=== PATIENT | female | born 1990 | race Caucasian/White ===

== ENCOUNTER → 2021-03-03 08:37 | Outpatient (CLI) | payer OTHER, SELFPAY ==
[2021-03-03] MEDS: COVID-19 VACC #1, MRNA(MOD) 100 MCG/0.5 ML VIAL IM (08:46)
== END ==
PROVIDERS: PCP Registered Nurse; Visit Provider Internal Medicine
DX: Z23 Encounter for immunization (principal)
CPT/HCPCS: 0011A; 91301

== ENCOUNTER → 2021-03-14 08:04 | Outpatient (CLI) | payer OTHER, SELFPAY ==
--- NOTE | 2021-03-14 08:06 | DI.US.S_ITS ---
PROCEDURE: US THYROID INDICATIONS: RIGHT THYROID NODULE TECHNIQUE: Real-time scanning was performed of the thyroid gland, with image documentation. COMPARISON: None. FINDINGS: Right: Thyroid lobe measures 6.4 x 2.4 x 2.7 cm. Left: Thyroid lobe measures 5.1 x 1.6 x 2 cm. Isthmus: A mm thick. The thyroid is diffusely heterogeneous, right worse than left. Nodule number: 1 Location: Right mid thyroid Size: 1.8 x 0.9 x 1.3 cm. Composition: Solid Echogenicity: Isoechoic Shape: wider than tall. Margins: Lobulated Echogenic foci: Peripheral calcifications are seen Total points: 7 ACR TI-RADS category: 5 IMPRESSION: Diffusely heterogeneous thyroid, with a suspicious nodule seen within the right mid thyroid. By patient history, this right-sided nodule has been previously biopsied with benign results. If it would be helpful for clinical management decision making, a dedicated repeat ultrasound-guided fine needle aspiration could be considered. ACR TI-RADS definitions and recommendations: TI-RADS 1 (benign): 0 points. FNA not needed. TI-RADS 2 (not suspicious): 2 points. FNA not needed. TI-RADS 3 (mildly suspicious): 3 points. * FNA if 2.5 cm or larger, follow up if 1.5 cm or larger (at 1, 3, and 5 years). TI-RADS 4 (moderately suspicious): 4-6 points. * FNA if 1.5 cm or larger, follow up if 1 cm or larger (at 1, 2, 3, and 5 years). TI-RADS 5 (highly suspicious): 7 points or more. * FNA if 1 cm or larger, follow up if 0.5 cm or larger (every year for 5 years). Dictated by: Phani Dainelle M.D. on 03/14/2021 at 8:04 Approved by: Phani Danielle M.D. on 03/14/2021 at 8:06
== END ==
PROVIDERS: PCP Registered Nurse; Referring Provider Registered Nurse; Visit Provider Registered Nurse
DX: E04.1 Nontoxic single thyroid nodule (principal)
CPT/HCPCS: 76536

== ENCOUNTER → 2021-03-29 07:15 | Outpatient (CLI) | payer OTHER, SELFPAY ==
[2021-03-29 08:17] LABS: Add Manual Diff / Slide Review NO; Basophils Absolute Auto 0 /uL (0-100); Basophils Percent Auto 0.3 % (0-2); Eosinophils Absolute Auto 100 /uL (0-450); Eosinophils Percent Auto 2.1 % (2-4); Hematocrit 41.1 % (36-46); Hemoglobin 13.9 g/dL (12.0-16.0); Lymphocytes Absolute Auto 1900 /uL (1100-4500); Lymphocytes Percent Auto 34.1 % (25-40); Mean Corpuscular HGB Conc 33.9 % (30-36); Mean Corpuscular Hemoglobin 30.8 PG (26-34); Mean Corpuscular Volume 90.9 fL (80-100); Monocytes Absolute Auto 400 /uL (0-900); Neutrophils Absolute Auto 3200 /uL (1500-7000); Neutrophils Percent Auto 56.5 % (50-75); Platelet Count 241 X10^3/uL (150-400); Red Blood Cell Count 4.52 X10^6/uL (4.0-5.2); Red Cell Distribution Width 12.2 % (11.6-14.8); White Blood Cell Count 5.6 X10^3/uL (4.5-11.0)
[2021-03-29 08:35] LABS: Alanine Aminotransferase 17 IU/L (<35); Albumin 4.7 g/dL (3.5-5.0); Albumin Globulin Ratio 1.4 (1.0-2.8); Alkaline Phosphatase 64 U/L (38-126); Aspartate Aminotransferase 26 IU/L (14-36); BUN Creatinine Ratio 14.8 (6-22); Blood Urea Nitrogen 8 mg/dL (7-17); Calcium 9.5 mg/dL (8.4-10.2); Carbon Dioxide 26 mmol/L (22-32); Chloride 103 mmol/L (98-107); Estimated Glomerular Filt Rate > 60.0 mL/min (>60); Globulin 3.4 g/dL (1.7-4.1); Glucose 96 mg/dL (70-100); HEMOLYSIS < 15 (0-50); Sodium 137 mmol/L (137-145); Total Protein 8.1 g/dL (6.3-8.2)
[2021-03-29 08:50] LABS: Free T4, Direct Thyroxine 0.79 ng/dL (0.78-2.19)
[2021-03-29 09:04] LABS: Thyroid Stimulating Hormone 3.39 uIU/mL (0.47-4.68)
== END ==
PROVIDERS: PCP Registered Nurse; Referring Provider Registered Nurse; Visit Provider Registered Nurse
DX: E04.1 Nontoxic single thyroid nodule (principal); Z00.00 Encounter for general adult medical examination without abnormal findings; Z87.42 Personal history of other diseases of the female genital tract
CPT/HCPCS: 36415; 80053; 84439; 84443; 85025

== ENCOUNTER → 2021-03-31 08:25 | Outpatient (CLI) | payer OTHER, SELFPAY ==
[2021-03-31] MEDS: COVID-19 VACC #2, MRNA(MOD) 100 MCG/0.5 ML VIAL IM (08:33)
== END ==
PROVIDERS: PCP Registered Nurse; Visit Provider Internal Medicine
DX: Z23 Encounter for immunization (principal)
CPT/HCPCS: 0012A; 91301

== ENCOUNTER → 2021-08-31 14:43 | Outpatient (ROUT) | payer SELFPAY ==
[2021-08-31 14:45] LABS: Urine Drug Scr, Empl Non-NIDA See Separate Report
== END ==
PROVIDERS: PCP Registered Nurse
DX: Z02.1 Encounter for pre-employment examination (principal)
CPT/HCPCS: 81099

== ENCOUNTER 2021-09-08 07:30 | Outpatient (RCR) | payer OTHER, SELFPAY ==
--- NOTE | 2021-08-11 16:05 | PT.OIE ---
Current Diagnoses Pain in right shoulder (08/11/21) Past Medical History (Last Reviewed 07/24/21 @ 09:39 by MARTIN Hoang) Abnormal Pap smear of cervix (~2009) Foot pain (~2007) Ovarian cyst (~2019) Right shoulder pain Scoliosis (~2005) Shoulder pain (~2013) Thyroid nodule (~2013) [place] teeth removed Past Surgical History (Last Reviewed 07/24/21 @ 09:39 by MARTIN Hoang) [place] teeth removed Visit Care Team Role Provider Type MARTIN Hoang Attending Provider Advanced Fan Installer Primary Care Provider Referring Provider Specialty: Medical Address: [address] [place] [address] Email: [email or web address] Physical Therapy Initial Evaluation PT-OP-A Visit Information Start: 08/07/21 13:53 Freq: Status: Active Protocol: Document 08/11/21 07:30 MB (Rec: 08/11/21 07:52 MB [id number]) Out-Patient Physical Therapy Visit Information Visit Information Visit Type Initial Evaluation Visit Note [place] 12/05 visits Visit Start Time 07:30 Visit Stop Time 08:15 Total Visit Minutes 45 Visit Number 1 Evaluation Information Evaluation Date 08/11/21 PT-OP-B Current Condition Start: 08/07/21 13:53 Freq: Status: Active Protocol: Document 08/11/21 07:30 MB (Rec: 08/11/21 07:52 MB [id number]) Current Condition History of Current Condition Onset Date 2014 Current Complaints Right scapular, neck and right forearm dull ache and pain History of Current Condition Pt has history of SLAP and labral tear right shoulder 2014. She did a lot of PT with last PT course in 2018. She prefers conservative treatment and has occ sharp pain upper arm area, some weakness and paresthesias. Pt has a history of scoliosis, lipoma, and thyroid nodule. Pt used to played a lot of tennis before 2014. In 2013, she started a new job and had to to a lot of heavy lifting. She noticed a lump on the back of her neck that bothered her . She stopped playing tennis in 2018. Recently, she was lifting her 15 month old daughter and she felt the old right right forearm pain. She con't with medial scapular and B neck pain. She had PT for her neck as well. 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 She takes care of her daughter. She is still breast feeding. Lifting over her head and reaching above her head increase the pain. She sleeps on her right side. She sleeps with one pillow under her head . Pressure on the shoulder blade helps. Prior Treatments and Tests Right shoulder MRI 2015 and PT Treatment Goals Patient/Caregiver Goals Come up with therapy program, increase strength and decrease pain PT-OP-C Subjective Start: 08/07/21 13:53 Freq: Status: Active Protocol: Document 08/11/21 07:30 MB (Rec: 08/11/21 07:52 MB [id number]) OP-PT Subjective Patient Comments Patient Comments See history of current condition PT-OP-J Posture/Palpation/Skin Start: 08/07/21 13:53 Freq: Status: Active Protocol: Document 08/11/21 07:30 MB (Rec: 08/11/21 16:05 MB [id number]) Posture Evaluation Comments Posture Comments Decreased thoracic kyphosis, anterior tilt pelvis, rounded shoulders, mild L convexity upper thoracic spine, right convexity lower thoracic spine , right iliac crest slightly higher than the left. PT-OP-K Range of Motion Start: 08/07/21 13:53 Freq: Status: Active Protocol: Document 08/11/21 07:30 MB (Rec: 08/11/21 16:05 MB [id number]) Cervical Spine Range of Motion Cervical Spine Active Testing Position Standing Flexion 45 Extension 40 Rotation Left 57 Rotation Right 70 Lateral Flexion Left 24 Lateral Flexion Right 29 Comments Pt has lipoma like nodule posterior right neck that is about a dime size Shoulder Goniometric Range of Motion Shoulder Left Shoulder ROM WFL Yes Testing Position Standing Flexion 164 Extension 50 Abduction 165 Comments IR behind back in standing to T7 Passive ER/IR in supine with shoulder in 90/90 is normal and equal to the right Mild pain with active shoulder flexion and abduction Right Shoulder ROM WFL Yes Testing Position Standing Flexion 160 Extension 50 Abduction 155 Comments IR behind back in standing to T9 (dominant arm) Passive ER/IR in supine with shoulder in 90/90 is normal and equal to the left PT-OP-M Strength Start: 08/07/21 13:53 Freq: Status: Active Protocol: Document 08/11/21 07:30 MB (Rec: 08/11/21 16:05 MB [id number]) Shoulder Strength Shoulder Manual Muscle Testing Left Flexion 5 Normal Abduction (C5) 5 Normal External Rotation 5 Normal Internal Rotation 5 Normal Right External Rotation 3+ Fair+ Internal Rotation 4 Good Comments Shoulder flexion and abduction MMT NT d/t pt c/o pain with AROM Elbow/Forearm Strength Elbow and Forearm Manual Muscle Testing Left Flexion (C6) 5 Normal Extension (C7) 5 Normal Pronation 5 Normal Supination 5 Normal Right Flexion (C6) 5 Normal Extension (C7) 5 Normal Pronation 5 Normal Supination 5 Normal PT-OP-Q Treatments Start: 08/07/21 13:53 Freq: Status: Active Protocol: Document 08/11/21 07:30 MB (Rec: 08/11/21 16:05 MB [id number]) Therapeutic Exercises Standing Exercises Racquet ball massage Side left Comments Intrascapular STM Self-Care/Home Management Treatment Education Patient Education Body Mechanics,Joint Protection,Pain Management Other Education Educated pt on benefits of proper sleeping position to help support her shoulder and to decrease pain: cervical support with towel in pillow, pillow support between arms and legs, use of frozen vegetables for pain PT-OP-T Assessment and Plan Start: 08/07/21 13:53 Freq: Status: Active Protocol: Document 08/11/21 07:30 MB (Rec: 08/11/21 16:05 MB [id number]) Physical Therapy Assessment Rehab Potential Rehabilitation Potential Good Evaluation Complexity Number of Personal Factors/Comorbidities 1-2 Number of Body Systems Impaired 1-2 Clinical Presentation at Evaluation Evolving Impairments Impairments Activity Tolerance,Functional Activities,Pain,Posture,ROM, Soft Tissue Mobility,Strength Other Impairments Personal factors include history of right shoulder injury and PT and has not continued with exercises from PT though she reports they were helpful. Body systems affected include musculoskeletal and neuromuscular. Her clinical presentation is evolving in setting of old SLAP injury and recurrent pain and weakness. Goals 3 Impairment QuickDASH score reflects 43.18 % impairment Wine Fermenter Goal (LTG) Pt will present with an improved QuickDASH score to reflect no more than 20% impairment to reflect improved function by 10/11/21. LTG Duration 8 weeks 2 Senior Living Goal (LTG) Pt will perform progressive HEP with I including thoracic and cervical flexibility, postural, core, shoulder and intrascapular strengthening and self-massage to decrease pain and improve function by 10/11/21. LTG Duration 8 weeks 1 Wine Fermenter Goal (LTG) Pt will present with increased right shoulder strength to 5/ 5 for flexion, abduction, IR and ER to improve functional use of and pain in right arm by 10/11/21. 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 She presents with normal and painful right shoulder ROM today and weakness. She will benefit from PT for flexibility, strengthening, and manual work . Underlying injury may be a barrier to progression. Physical Therapy Plan Frequency and Duration Frequency of Treatment 2x/Week Duration of Treatment 8 weeks Plan of Care Start Date 08/11/21 Plan of Care End Date 10/11/21 Therapeutic Interventions Therapeutic Interventions Aquatic Therapy,Balance Training,Canalithic Repositioning,Coordination Training,Home Exercise Program ,Joint Mobilizations,Manual Therapy,Neuromuscular Re- education,Patient/Caregiver Education,Self-Care/Home Management,Soft Tissue Mobilization,Taping, Therapeutic Activities, Therapeutic Exercises Modalities Cold Pack/Ice Massage,Electric Stimulation,Hot Packs, Ultrasound Next Visit Focus/Plan Next Note Type Treatment Note Next Visit Plan Next treatment: add infraspinatus MWM and upper traps MWM to racquet ball massge, then ed in back grounds cleaner...pt is already purchasing racquet balls so use those first. Upright arm bike Self SCM MWM, cervical rotation in sitting with end- range head nods, anterior neck stretch. Then, progress thoracic mobility with sitting thoracic rotation stretch and breathing and pect stretch. Progress pool noodle for core engagement and exercises, child's pose for thorax and scoliosis, body blade, manual work
--- NOTE | 2021-08-11 16:05 | PT.OPPOC ---
Physical, Occupational & Speech Therapy At [facility] Current Diagnoses Pain in right shoulder (08/11/21) Visit Care Team Role Provider Type MARTIN Hoang Attending Provider Advanced Painting Machine Operator Primary Care Provider Referring Provider Specialty: Medical Address: [address] [place] [address], [id number] Email: [email or web address] Plan Of Care PT-OP-T Assessment and Plan Start: 08/07/21 13:53 Freq: Status: Active Protocol: Document 08/11/21 07:30 MB (Rec: 08/11/21 16:05 MB [id number]) Physical Therapy Assessment Rehab Potential Rehabilitation Potential Good Evaluation Complexity Number of Personal Factors/Comorbidities 1-2 Number of Body Systems Impaired 1-2 Clinical Presentation at Evaluation Evolving Impairments Impairments Activity Tolerance,Functional Activities,Pain,Posture,ROM, Soft Tissue Mobility,Strength Other Impairments Personal factors include history of right shoulder injury and PT and has not continued with exercises from PT though she reports they were helpful. Body systems affected include musculoskeletal and neuromuscular. Her clinical presentation is evolving in setting of old SLAP injury and recurrent pain and weakness. Goals 3 Impairment QuickDASH score reflects 43.18 % impairment Fast Food Supervisor Goal (LTG) Pt will present with an improved QuickDASH score to reflect no more than 20% impairment to reflect improved function by 10/11/21. LTG Duration 8 weeks 2 Snf Goal (LTG) Pt will perform progressive HEP with I including thoracic and cervical flexibility, postural, core, shoulder and intrascapular strengthening and self-massage to decrease pain and improve function by 10/11/21. LTG Duration 8 weeks 1 Snf Goal (LTG) Pt will present with increased right shoulder strength to 5/ 5 for flexion, abduction, IR and ER to improve functional use of and pain in right arm by 10/11/21. 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 She presents with normal and painful right shoulder ROM today and weakness. She will benefit from PT for flexibility, strengthening, and manual work . Underlying injury may be a barrier to progression. Physical Therapy Plan Frequency and Duration Frequency of Treatment 2x/Week Duration of Treatment 8 weeks Plan of Care Start Date 08/11/21 Plan of Care End Date 10/11/21 Therapeutic Interventions Therapeutic Interventions Aquatic Therapy,Balance Training,Canalithic Repositioning,Coordination Training,Home Exercise Program ,Joint Mobilizations,Manual Therapy,Neuromuscular Re- education,Patient/Caregiver Education,Self-Care/Home Management,Soft Tissue Mobilization,Taping, Therapeutic Activities, Therapeutic Exercises Modalities Cold Pack/Ice Massage,Electric Stimulation,Hot Packs, Ultrasound Next Visit Focus/Plan Next Note Type Treatment Note Next Visit Plan Next treatment: add infraspinatus MWM and upper traps MWM to racquet ball massge, then ed in back staff physical therapy assistant...pt is already purchasing racquet balls so use those first. Upright arm bike Self SCM MWM, cervical rotation in sitting with end- range head nods, anterior neck stretch. Then, progress thoracic mobility with sitting thoracic rotation stretch and breathing and pect stretch. Progress pool noodle for core engagement and exercises, child's pose for thorax and scoliosis, body blade, manual work Plan of Care Dates Plan of Care Start Date 08/11/21 Plan of Care End Date 10/11/21 Electronically Signed by: Holly Najera PT 08/11/21 0127 Please Sign and Return: I have reviewed this Plan of Care and certify that the skilled therapy services above are required to meet the patient?s needs. Physician Signature Date Printed Name and Credentials Clinical Instructor Signature Printed Name and Credentials
--- NOTE | 2021-08-17 08:17 | PT.OTN ---
Current Diagnoses Pain in right shoulder (08/17/21) Physical Therapy Treatment Note PT-OP-A Visit Information Start: 08/07/21 13:53 Freq: Status: Active Protocol: Document 08/17/21 07:30 SP (Rec: 08/17/21 08:20 SP [id number]) Out-Patient Physical Therapy Visit Information Visit Information Visit Type Treatment Note Visit Note [place] 01/05 visits Visit Start Time 07:30 Visit Stop Time 08:17 Total Visit Minutes 47 Visit Number 2 Number of APPRAISER ART Visits 1 Evaluation Information Evaluation Date 08/11/21 PT-OP-B Current Condition Start: 08/07/21 13:53 Freq: Status: Active Protocol: Document 08/11/21 07:30 MB (Rec: 08/11/21 07:52 MB [id number]) Current Condition History of Current Condition Onset Date 2014 Current Complaints Right scapular, neck and right forearm dull ache and pain History of Current Condition Pt has history of SLAP and labral tear right shoulder 2014. She did a lot of PT with last PT course in 2017. She prefers conservative treatment and has occ sharp pain upper arm area, some weakness and paresthesias. Pt has a history of scoliosis, lipoma, and thyroid nodule. Pt used to played a lot of tennis before 2014. In 2013, she started a new job and had to to a lot of heavy lifting. She noticed a lump on the back of her neck that bothered her . She stopped playing tennis in 2018. Recently, she was lifting her 15 month old daughter and she felt the old right right forearm pain. She con't with medial scapular and B neck pain. She had PT for her neck as well. 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 She takes care of her daughter. She is still breast feeding. Lifting over her head and reaching above her head increase the pain. She sleeps on her right side. She sleeps with one pillow under her head . Pressure on the shoulder blade helps. Prior Treatments and Tests Right shoulder MRI 2014 and PT Treatment Goals Patient/Caregiver Goals Come up with therapy program, increase strength and decrease pain PT-OP-C Subjective Start: 08/07/21 13:53 Freq: Status: Active Protocol: Document 08/17/21 07:30 SP (Rec: 08/17/21 08:20 SP [id number]) OP-PT Subjective Patient Comments Patient Comments Pt reports wasn't able to get racquetball for self massage but using a slight larger ball . Finds tightness over anterior neck and still difficult turning head to L to look over shld driving. PT-OP-J Posture/Palpation/Skin Start: 08/07/21 13:53 Freq: Status: Active Protocol: Document 08/11/21 07:30 MB (Rec: 08/11/21 16:05 MB [id number]) Posture Evaluation Comments Posture Comments Decreased thoracic kyphosis, anterior tilt pelvis, rounded shoulders, mild L convexity upper thoracic spine, right convexity lower thoracic spine , right iliac crest slightly higher than the left. PT-OP-K Range of Motion Start: 08/07/21 13:53 Freq: Status: Active Protocol: Document 08/11/21 07:30 MB (Rec: 08/11/21 16:05 MB [id number]) Cervical Spine Range of Motion Cervical Spine Active Testing Position Standing Flexion 45 Extension 40 Rotation Left 57 Rotation Right 70 Lateral Flexion Left 24 Lateral Flexion Right 29 Comments Pt has lipoma like nodule posterior right neck that is about a dime size Shoulder Goniometric Range of Motion Shoulder Left Shoulder ROM WFL Yes Testing Position Standing Flexion 164 Extension 50 Abduction 165 Comments IR behind back in standing to T7 Passive ER/IR in supine with shoulder in 90/90 is normal and equal to the right Mild pain with active shoulder flexion and abduction Right Shoulder ROM WFL Yes Testing Position Standing Flexion 160 Extension 50 Abduction 155 Comments IR behind back in standing to T9 (dominant arm) Passive ER/IR in supine with shoulder in 90/90 is normal and equal to the left PT-OP-M Strength Start: 08/07/21 13:53 Freq: Status: Active Protocol: Document 08/11/21 07:30 MB (Rec: 08/11/21 16:05 MB [id number]) Shoulder Strength Shoulder Manual Muscle Testing Left Flexion 5 Normal Abduction (C5) 5 Normal External Rotation 5 Normal Internal Rotation 5 Normal Right External Rotation 3+ Fair+ Internal Rotation 4 Good Comments Shoulder flexion and abduction MMT NT d/t pt c/o pain with AROM Elbow/Forearm Strength Elbow and Forearm Manual Muscle Testing Left Flexion (C6) 5 Normal Extension (C7) 5 Normal Pronation 5 Normal Supination 5 Normal Right Flexion (C6) 5 Normal Extension (C7) 5 Normal Pronation 5 Normal Supination 5 Normal PT-OP-Q Treatments Start: 08/07/21 13:53 Freq: Status: Active Protocol: Document 08/17/21 07:30 SP (Rec: 08/17/21 08:20 SP [id number]) Therapeutic Exercises Supine Exercises CS ext hold Supine Exercise Name chin nod stretch Reps/Minutes 10 s hold x10 CS ext/ rotation w/ head nod/ turn Side bilateral Reps/Minutes 10 sx10 Sitting Exercises scap retraction Sitting Exercise Name w/ CS ext neutral Reps/Minutes 10 s hold x10 Standing Exercises thercane Standing Exercise Name suboccipital w/ head nod/turn Side right Comments good feedback response Racquet ball massage Side bilateral Comments Intrascapular, pec STM Manual Therapy Treatment Soft Tissue Mobilization STMs Body Location R>LSCM, suboccipitals, lev scap, UT, pec major, prox bicep Mobilization Type Myofascial Release,Strumming, Sustained Pressure Intensity/Depth Moderate Body Position Supine Comments manual and MWM w/ head nods posterior- instruction on self STMs ball wall/ theracane, sustained pressure PT-OP-T Assessment and Plan Start: 08/07/21 13:53 Freq: Status: Active Protocol: Document 08/17/21 07:30 SP (Rec: 08/17/21 08:20 SP [id number]) Physical Therapy Assessment Goals 3 Impairment QuickDASH score reflects 43.18 % impairment Defense Attorney Goal (LTG) Pt will present with an improved QuickDASH score to reflect no more than 20% impairment to reflect improved function by 10/11/21. LTG Duration 8 weeks 2 Fdc Goal (LTG) Pt will perform progressive HEP with I including thoracic and cervical flexibility, postural, core, shoulder and intrascapular strengthening and self-massage to decrease pain and improve function by 10/11/21. LTG Duration 8 weeks 1 Fdc Goal (LTG) Pt will present with increased right shoulder strength to 5/ 5 for flexion, abduction, IR and ER to improve functional use of and pain in right arm by 10/11/21. LTG Duration 8 weeks Assessment Summary Assessment Pt responded well to manual and instruction on self STMs using ball on wall over interscap, added pec with ball vs hand MWM UE movements and MWM using SCM then theracane over posterior neck musculature for self performance at home ( has a thereacane). Intiated DNF, cervical rotation with head nod/ turn and awaress of scap stab posture supine and stand back to wall this tx. Pt stated ableto turn head to L little more end of tx. Physical Therapy Plan Frequency and Duration Frequency of Treatment 2x/Week Duration of Treatment 8 weeks Plan of Care Start Date 08/11/21 Plan of Care End Date 10/11/21 Therapeutic Interventions Therapeutic Interventions Aquatic Therapy,Balance Training,Canalithic Repositioning,Coordination Training,Home Exercise Program ,Joint Mobilizations,Manual Therapy,Neuromuscular Re- education,Patient/Caregiver Education,Self-Care/Home Management,Soft Tissue Mobilization,Taping, Therapeutic Activities, Therapeutic Exercises Modalities Cold Pack/Ice Massage,Electric Stimulation,Hot Packs, Ultrasound Next Visit Focus/Plan Next Note Type Treatment Note Next Visit Plan Next treatment: review infraspinatus MWM and upper traps MWM to racquet ball massge, then ed in back director of medical education...pt is already purchasing racquet balls so use those first. Assess use of theracane, Upright arm bike, pec stretch over noodle/ foam roller , add UE ROM if tolerant. Self SCM MWM, cervical rotation in sitting with end- range head nods, anterior neck stretch. Then, progress thoracic mobility with sitting thoracic rotation stretch and breathing and pect stretch. Progress pool noodle for core engagement and exercises, child's pose for thorax and scoliosis, body blade, manual work
--- NOTE | 2021-08-21 08:30 | PT.OTN ---
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 She did a lot of PT with last PT course in 2017. She prefers conservative treatment and has occ sharp pain upper arm area, some weakness and paresthesias. Pt has a history of scoliosis, lipoma, and thyroid nodule. Pt used to played a lot of tennis before 2014. In 2013, she started a new job and had to to a lot of heavy lifting. She noticed a lump on the back of her neck that bothered her . She stopped playing tennis in 2018. Recently, she was lifting her 15 month old daughter and she felt the old right right forearm pain. She con't with medial scapular and B neck pain. She had PT for her neck as well. 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 She takes care of her daughter. She is still breast feeding. Lifting over her head and reaching above her head increase the pain. She sleeps on her right side. She sleeps with one pillow under her head . Pressure on the shoulder blade helps. Prior Treatments and Tests Right shoulder MRI 2014 and PT Treatment Goals Patient/Caregiver Goals Come up with therapy program, increase strength and decrease pain PT-OP-C Subjective Start: 08/07/21 13:53 Freq: Status: Active Protocol: Document 08/21/21 07:30 SP (Rec: 08/21/21 08:51 SP [id number]) OP-PT Subjective Patient Comments Patient Comments Pt states is compliant with HEP and manual techniques learned past 2 treatments, unsure if feeling loosening up yet. PT-OP-J Posture/Palpation/Skin Start: 08/07/21 13:53 Freq: Status: Active Protocol: Document 08/11/21 07:30 MB (Rec: 08/11/21 16:05 MB [id number]) Posture Evaluation Comments Posture Comments Decreased thoracic kyphosis, anterior tilt pelvis, rounded shoulders, mild L convexity upper thoracic spine, right convexity lower thoracic spine , right iliac crest slightly higher than the left. PT-OP-K Range of Motion Start: 08/07/21 13:53 Freq: Status: Active Protocol: Document 08/11/21 07:30 MB (Rec: 08/11/21 16:05 MB [id number]) Cervical Spine Range of Motion Cervical Spine Active Testing Position Standing Flexion 45 Extension 40 Rotation Left 57 Rotation Right 70 Lateral Flexion Left 24 Lateral Flexion Right 29 Comments Pt has lipoma like nodule posterior right neck that is about a dime size Shoulder Goniometric Range of Motion Shoulder Left Shoulder ROM WFL Yes Testing Position Standing Flexion 164 Extension 50 Abduction 165 Comments IR behind back in standing to T7 Passive ER/IR in supine with shoulder in 90/90 is normal and equal to the right Mild pain with active shoulder flexion and abduction Right Shoulder ROM WFL Yes Testing Position Standing Flexion 160 Extension 50 Abduction 155 Comments IR behind back in standing to T9 (dominant arm) Passive ER/IR in supine with shoulder in 90/90 is normal and equal to the left PT-OP-M Strength Start: 08/07/21 13:53 Freq: Status: Active Protocol: Document 08/11/21 07:30 MB (Rec: 08/11/21 16:05 MB [id number]) Shoulder Strength Shoulder Manual Muscle Testing Left Flexion 5 Normal Abduction (C5) 5 Normal External Rotation 5 Normal Internal Rotation 5 Normal Right External Rotation 3+ Fair+ Internal Rotation 4 Good Comments Shoulder flexion and abduction MMT NT d/t pt c/o pain with AROM Elbow/Forearm Strength Elbow and Forearm Manual Muscle Testing Left Flexion (C6) 5 Normal Extension (C7) 5 Normal Pronation 5 Normal Supination 5 Normal Right Flexion (C6) 5 Normal Extension (C7) 5 Normal Pronation 5 Normal Supination 5 Normal PT-OP-Q Treatments Start: 08/07/21 13:53 Freq: Status: Active Protocol: Document 08/21/21 07:30 SP (Rec: 08/21/21 08:51 SP [id number]) Therapeutic Exercises Supine Exercises TS ext and rolling Supine Exercise Name reviewed past TS mob Equipment Used has small roller at home Reps/Minutes 1 min Comments ext up spinal seg then roll pec stretch over foam roller Supine Exercise Name 3, 2, 1, 12 o'clock (added to HEP) Resistance over foam noodle>foam roller Reps/Minutes 10s each position Comments will use roller blanket at home for now (has small roller ) CS ext hold Supine Exercise Name chin nod stretch Resistance reviewed HEP Reps/Minutes 10s hold x10 Comments good form CS ext/ rotation w/ head nod/ turn Supine Exercise Name chin nod stretch (supine and sitting) Side bilateral Resistance reviewed HEP Reps/Minutes 10 sx10 Comments cued neck straight alignment w / rotation then nod Sidelying Exercises open book Sidelying Exercise Name hand on head w/ breath end feel Side bilateral Resistance added to HEP Reps/Minutes 3 sec hold x5 Comments good feedback stretch, more open Sitting Exercises UT and levator scap stretch Sitting Exercise Name reviewed self stretching has been doing (HEP) Side right Reps/Minutes 30 x3 Comments good feedback stretch SNAGS Sitting Exercise Name CS rotation w/ towel Side bilateral Resistance added to HEP Reps/Minutes 10 x 5 Comments cued towel over cheek, neck plum straight and just rotate, no UT recruitment seated CS rotation w/ head nods Sitting Exercise Name reviewed seated today Side bilateral Resistance added to HEP Reps/Minutes 5 nods x5 Comments cued plum neck alignment before turn and maintain- better stretch on R. scap retraction Sitting Exercise Name w/ CS ext neutral Resistance reviewed HEP Reps/Minutes 10 s hold x10 Standing Exercises shoulder ER w/ resistance Standing Exercise Name added to HEP Side bilateral Resistance TB #1 Equipment Used back to wall, over foam roller Reps/Minutes x10 Comments cued tall alignment, TA awareness con/ ecc directioning thercane Standing Exercise Name suboccipital w/ head nod/turn Side right Reps/Minutes discussed doing at home- not performed in tx Comments good feedback response Racquet ball massage Standing Exercise Name infraspinatus Side bilateral Comments Intrascapular, pec STM Manual Therapy Treatment Soft Tissue Mobilization scapular STMs Body Location infraspinatus, supraspinatus, teres Mobilization Type Cross-Friction Intensity/Depth Moderate Body Position Sidelying Comments manual STMs Body Location suboccipitals, lev scap, UT, pec major, prox bicep Mobilization Type Myofascial Release,Strumming, Sustained Pressure Intensity/Depth Moderate Body Position Supine Comments manual and MWM w/ head nods posterior- instruction on self STMs ball wall/ theracane, sustained pressure Manual Techniques PNF R scap Body Location R scap Body Position Sidelying Comments inferior/posterior w/ education on neutral positioning during scap retraction/ shld ER to decrease UT/post cervical mus recruitment. PT-OP-T Assessment and Plan Start: 08/07/21 13:53 Freq: Status: Active Protocol: Document 08/21/21 07:30 SP (Rec: 08/21/21 08:51 SP [id number]) Physical Therapy Assessment Goals 3 Impairment QuickDASH score reflects 43.18 % impairment News Camera Operator Goal (LTG) Pt will present with an improved QuickDASH score to reflect no more than 20% impairment to reflect improved function by 10/11/21. LTG Duration 8 weeks 2 News Camera Operator Goal (LTG) Pt will perform progressive HEP with I including thoracic and cervical flexibility, postural, core, shoulder and intrascapular strengthening and self-massage to decrease pain and improve function by 10/11/21. LTG Duration 8 weeks 1 Fpc Goal (LTG) Pt will present with increased right shoulder strength to 5/ 5 for flexion, abduction, IR and ER to improve functional use of and pain in right arm by 10/11/21. LTG Duration 8 weeks Assessment Summary Assessment Pt responded well to manual and understanding how use theracane and racquetball at wall. Initiated cervical SNAGS , UT/ Lev Scap stretching/ rotation w/ head nods and TS & scapular mobility this tx. Ended with shld ER strengthening with occasional cues with wall and foam roller for self feedback for TA engagement and scap post/ retract for stability. Pt stated feels weak in shld ER and today very beneficial of balancing reduce tightness and start strengthening. Discussed holding child alternating sides to reduce R hip hike and UT recruitment and incorporating HEP to balance self. Physical Therapy Plan Frequency and Duration Frequency of Treatment 2x/Week Duration of Treatment 8 weeks Plan of Care Start Date 08/11/21 Plan of Care End Date 10/11/21 Therapeutic Interventions Therapeutic Interventions Aquatic Therapy,Balance Training,Canalithic Repositioning,Coordination Training,Home Exercise Program ,Joint Mobilizations,Manual Therapy,Neuromuscular Re- education,Patient/Caregiver Education,Self-Care/Home Management,Soft Tissue Mobilization,Taping, Therapeutic Activities, Therapeutic Exercises Modalities Cold Pack/Ice Massage,Electric Stimulation,Hot Packs, Ultrasound Next Visit Focus/Plan Next Note Type Treatment Note Next Visit Plan Next treatment: STMs R infraspinatus and UT review use of racquet ball massge, then ed in back double end tenon operator. Add Upright arm bike, review pec stretch and shld ER TB over noodle/foam roller, add UE OH w if tolerant w/ resistance. Continue progress thoracic mobility with sitting thoracic rotation stretch and breathing and pect stretch. Progress pool noodle for core engagement and exercises, child's pose for thorax and scoliosis, body blade, manual work
--- NOTE | 2021-08-23 11:38 | PT.OTN ---
Current Diagnoses Pain in right shoulder (08/23/21) Physical Therapy Treatment Note PT-OP-A Visit Information Start: 08/07/21 13:53 Freq: Status: Active Protocol: Document 08/23/21 07:26 [facility] (Rec: 08/23/21 11:36 [facility] [id number]) Out-Patient Physical Therapy Visit Information Visit Information Visit Type Treatment Note Visit Note Valentine 03/05 visits Visit Start Time 07:30 Visit Stop Time 08:15 Total Visit Minutes 45 Visit Number 4 Number of BRUSHER WARP Visits 0 PT-OP-B Current Condition Start: 08/07/21 13:53 Freq: Status: Active Protocol: Document 08/11/21 07:30 MB (Rec: 08/11/21 07:52 MB [id number]) Current Condition History of Current Condition Onset Date 2014 Current Complaints Right scapular, neck and right forearm dull ache and pain History of Current Condition Pt has history of SLAP and labral tear right shoulder 2014. She did a lot of PT with last PT course in 2017. She prefers conservative treatment and has occ sharp pain upper arm area, some weakness and paresthesias. Pt has a history of scoliosis, lipoma, and thyroid nodule. Pt used to played a lot of tennis before 2014. In 2013, she started a new job and had to to a lot of heavy lifting. She noticed a lump on the back of her neck that bothered her . She stopped playing tennis in 2018. Recently, she was lifting her 15 month old daughter and she felt the old right right forearm pain. She con't with medial scapular and B neck pain. She had PT for her neck as well. 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 She takes care of her daughter. She is still breast feeding. Lifting over her head and reaching above her head increase the pain. She sleeps on her right side. She sleeps with one pillow under her head . Pressure on the shoulder blade helps. Prior Treatments and Tests Right shoulder MRI 2014 and PT Treatment Goals Patient/Caregiver Goals Come up with therapy program, increase strength and decrease pain PT-OP-C Subjective Start: 08/07/21 13:53 Freq: Status: Active Protocol: Document 08/23/21 07:26 [facility] (Rec: 08/23/21 11:36 [facility] [id number]) OP-PT Subjective Patient Comments Patient Comments Pt reports continued compliance w/HEP and feeling sore, borderline painful, in neck from HEP. Pt reports using heavy self-massage pressure. PT-OP-J Posture/Palpation/Skin Start: 08/07/21 13:53 Freq: Status: Active Protocol: Document 08/11/21 07:30 MB (Rec: 08/11/21 16:05 MB [id number]) Posture Evaluation Comments Posture Comments Decreased thoracic kyphosis, anterior tilt pelvis, rounded shoulders, mild L convexity upper thoracic spine, right convexity lower thoracic spine , right iliac crest slightly higher than the left. PT-OP-K Range of Motion Start: 08/07/21 13:53 Freq: Status: Active Protocol: Document 08/11/21 07:30 MB (Rec: 08/11/21 16:05 MB [id number]) Cervical Spine Range of Motion Cervical Spine Active Testing Position Standing Flexion 45 Extension 40 Rotation Left 57 Rotation Right 70 Lateral Flexion Left 24 Lateral Flexion Right 29 Comments Pt has lipoma like nodule posterior right neck that is about a dime size Shoulder Goniometric Range of Motion Shoulder Left Shoulder ROM WFL Yes Testing Position Standing Flexion 164 Extension 50 Abduction 165 Comments IR behind back in standing to T7 Passive ER/IR in supine with shoulder in 90/90 is normal and equal to the right Mild pain with active shoulder flexion and abduction Right Shoulder ROM WFL Yes Testing Position Standing Flexion 160 Extension 50 Abduction 155 Comments IR behind back in standing to T9 (dominant arm) Passive ER/IR in supine with shoulder in 90/90 is normal and equal to the left PT-OP-M Strength Start: 08/07/21 13:53 Freq: Status: Active Protocol: Document 08/11/21 07:30 MB (Rec: 08/11/21 16:05 MB [id number]) Shoulder Strength Shoulder Manual Muscle Testing Left Flexion 5 Normal Abduction (C5) 5 Normal External Rotation 5 Normal Internal Rotation 5 Normal Right External Rotation 3+ Fair+ Internal Rotation 4 Good Comments Shoulder flexion and abduction MMT NT d/t pt c/o pain with AROM Elbow/Forearm Strength Elbow and Forearm Manual Muscle Testing Left Flexion (C6) 5 Normal Extension (C7) 5 Normal Pronation 5 Normal Supination 5 Normal Right Flexion (C6) 5 Normal Extension (C7) 5 Normal Pronation 5 Normal Supination 5 Normal PT-OP-Q Treatments Start: 08/07/21 13:53 Freq: Status: Active Protocol: Document 08/23/21 07:26 [facility] (Rec: 08/23/21 11:36 [facility] [id number]) Therapeutic Exercises Supine Exercises TS ext and rolling Supine Exercise Name work on tspine ext w/cues to avoid lumbar and excessive cerivcal ext Comments encouraged to do chin tuck & pelvic tilt & use LTR to help mob pec stretch over foam roller Supine Exercise Name 12 o'clock to 3/9 o'clock Side bilateral Resistance bodyweight Equipment Used 36 inch foam roller Reps/Minutes slow continuous movement Comments movement to midline and crossbody Standing Exercises shoulder ER w/ resistance Side bilateral Resistance TB #1 Equipment Used back to wall Reps/Minutes 1x20 Comments needed mod cueing for spine aligned w/wall Manual Therapy Treatment Soft Tissue Mobilization lats Body Location R w/fwd reach Mobilization Type Strumming,Sustained Pressure Intensity/Depth Moderate Body Position Sidelying Joint Mobilizations thoracic Comments 1. UPA R T6 &7 w/c/r ant elevation/post dep ribs Comments caudal glides of ribs 7, 2 & 3 R w/c/r ant elevation/ post dep Neuro Re-Education Treatment Other Activities PNF Comments R scap post dep sustained hold PT-OP-T Assessment and Plan Start: 08/07/21 13:53 Freq: Status: Active Protocol: Document 08/23/21 07:26 [facility] (Rec: 08/23/21 11:36 [facility] [id number]) Physical Therapy Assessment Goals 3 Impairment QuickDASH score reflects 43.18 % impairment Manifest/Order Organizer Print Orders Goal (LTG) Pt will present with an improved QuickDASH score to reflect no more than 20% impairment to reflect improved function by 10/11/21. LTG Duration 8 weeks 2 Manifest/Order Organizer Print Orders Goal (LTG) Pt will perform progressive HEP with I including thoracic and cervical flexibility, postural, core, shoulder and intrascapular strengthening and self-massage to decrease pain and improve function by 10/11/21. LTG Duration 8 weeks 1 Manifest/Order Organizer Print Orders Goal (LTG) Pt will present with increased right shoulder strength to 5/ 5 for flexion, abduction, IR and ER to improve functional use of and pain in right arm by 10/11/21. LTG Duration 8 weeks Assessment Summary Assessment Pt reports relief w/treatment w/dec neck pain and dec scap numbness feeling. She did well with exercises w/questions answered but ddid require cues to avoid back ext during exercises. Physical Therapy Plan Frequency and Duration Frequency of Treatment 2x/Week Duration of Treatment 8 weeks Plan of Care Start Date 08/11/21 Plan of Care End Date 10/11/21 Next Visit Focus/Plan Next Note Type Treatment Note Next Visit Plan start work on core control & work on posture, work on scap depression ability.
--- NOTE | 2021-08-30 10:54 | PT.OTN ---
Current Diagnoses Pain in right shoulder (08/30/21) Physical Therapy Treatment Note PT-OP-A Visit Information Start: 08/07/21 13:53 Freq: Status: Active Protocol: Document 08/23/21 07:26 [facility] (Rec: 08/23/21 11:36 [facility] [id number]) Out-Patient Physical Therapy Visit Information Visit Information Visit Type Treatment Note Visit Note [place] 03/05 visits Visit Start Time 07:30 Visit Stop Time 08:15 Total Visit Minutes 45 Visit Number 4 Number of PRICE ACCURACY SUPERVISOR Visits 0 PT-OP-B Current Condition Start: 08/07/21 13:53 Freq: Status: Active Protocol: Document 08/11/21 07:30 MB (Rec: 08/11/21 07:52 MB [id number]) Current Condition History of Current Condition Onset Date 2014 Current Complaints Right scapular, neck and right forearm dull ache and pain History of Current Condition Pt has history of SLAP and labral tear right shoulder 2014. She did a lot of PT with last PT course in 2017. She prefers conservative treatment and has occ sharp pain upper arm area, some weakness and paresthesias. Pt has a history of scoliosis, lipoma, and thyroid nodule. Pt used to played a lot of tennis before 2014. In 2013, she started a new job and had to to a lot of heavy lifting. She noticed a lump on the back of her neck that bothered her . She stopped playing tennis in 2018. Recently, she was lifting her 15 month old daughter and she felt the old right right forearm pain. She con't with medial scapular and B neck pain. She had PT for her neck as well. 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 She takes care of her daughter. She is still breast feeding. Lifting over her head and reaching above her head increase the pain. She sleeps on her right side. She sleeps with one pillow under her head . Pressure on the shoulder blade helps. Prior Treatments and Tests Right shoulder MRI 2014 and PT Treatment Goals Patient/Caregiver Goals Come up with therapy program, increase strength and decrease pain PT-OP-C Subjective Start: 08/07/21 13:53 Freq: Status: Active Protocol: Document 08/23/21 07:26 [facility] (Rec: 08/23/21 11:36 [facility] [id number]) OP-PT Subjective Patient Comments Patient Comments Pt reports continued compliance w/HEP and feeling sore, borderline painful, in neck from HEP. Pt reports using heavy self-massage pressure. PT-OP-J Posture/Palpation/Skin Start: 08/07/21 13:53 Freq: Status: Active Protocol: Document 08/11/21 07:30 MB (Rec: 08/11/21 16:05 MB [id number]) Posture Evaluation Comments Posture Comments Decreased thoracic kyphosis, anterior tilt pelvis, rounded shoulders, mild L convexity upper thoracic spine, right convexity lower thoracic spine , right iliac crest slightly higher than the left. PT-OP-K Range of Motion Start: 08/07/21 13:53 Freq: Status: Active Protocol: Document 08/11/21 07:30 MB (Rec: 08/11/21 16:05 MB [id number]) Cervical Spine Range of Motion Cervical Spine Active Testing Position Standing Flexion 45 Extension 40 Rotation Left 57 Rotation Right 70 Lateral Flexion Left 24 Lateral Flexion Right 29 Comments Pt has lipoma like nodule posterior right neck that is about a dime size Shoulder Goniometric Range of Motion Shoulder Left Shoulder ROM WFL Yes Testing Position Standing Flexion 164 Extension 50 Abduction 165 Comments IR behind back in standing to T7 Passive ER/IR in supine with shoulder in 90/90 is normal and equal to the right Mild pain with active shoulder flexion and abduction Right Shoulder ROM WFL Yes Testing Position Standing Flexion 160 Extension 50 Abduction 155 Comments IR behind back in standing to T9 (dominant arm) Passive ER/IR in supine with shoulder in 90/90 is normal and equal to the left PT-OP-M Strength Start: 08/07/21 13:53 Freq: Status: Active Protocol: Document 08/11/21 07:30 MB (Rec: 08/11/21 16:05 MB [id number]) Shoulder Strength Shoulder Manual Muscle Testing Left Flexion 5 Normal Abduction (C5) 5 Normal External Rotation 5 Normal Internal Rotation 5 Normal Right External Rotation 3+ Fair+ Internal Rotation 4 Good Comments Shoulder flexion and abduction MMT NT d/t pt c/o pain with AROM Elbow/Forearm Strength Elbow and Forearm Manual Muscle Testing Left Flexion (C6) 5 Normal Extension (C7) 5 Normal Pronation 5 Normal Supination 5 Normal Right Flexion (C6) 5 Normal Extension (C7) 5 Normal Pronation 5 Normal Supination 5 Normal PT-OP-Q Treatments Start: 08/07/21 13:53 Freq: Status: Active Protocol: Document 08/23/21 07:26 [facility] (Rec: 08/23/21 11:36 [facility] [id number]) Therapeutic Exercises Supine Exercises TS ext and rolling Supine Exercise Name work on tspine ext w/cues to avoid lumbar and excessive cerivcal ext Comments encouraged to do chin tuck & pelvic tilt & use LTR to help mob pec stretch over foam roller Supine Exercise Name 12 o'clock to 3/9 o'clock Side bilateral Resistance bodyweight Equipment Used 36 inch foam roller Reps/Minutes slow continuous movement Comments movement to midline and crossbody Standing Exercises shoulder ER w/ resistance Side bilateral Resistance TB #1 Equipment Used back to wall Reps/Minutes 1x20 Comments needed mod cueing for spine aligned w/wall Manual Therapy Treatment Soft Tissue Mobilization lats Body Location R w/fwd reach Mobilization Type Strumming,Sustained Pressure Intensity/Depth Moderate Body Position Sidelying Joint Mobilizations thoracic Comments 1. UPA R T6 &7 w/c/r ant elevation/post dep ribs Comments caudal glides of ribs 7, 2 & 3 R w/c/r ant elevation/ post dep Neuro Re-Education Treatment Other Activities PNF Comments R scap post dep sustained hold PT-OP-T Assessment and Plan Start: 08/07/21 13:53 Freq: Status: Active Protocol: Document 08/23/21 07:26 [facility] (Rec: 08/23/21 11:36 [facility] [id number]) Physical Therapy Assessment Goals 3 Impairment QuickDASH score reflects 43.18 % impairment Engineer Sergeant Goal (LTG) Pt will present with an improved QuickDASH score to reflect no more than 20% impairment to reflect improved function by 10/11/21. LTG Duration 8 weeks 2 Engineer Sergeant Goal (LTG) Pt will perform progressive HEP with I including thoracic and cervical flexibility, postural, core, shoulder and intrascapular strengthening and self-massage to decrease pain and improve function by 10/11/21. LTG Duration 8 weeks 1 Engineer Sergeant Goal (LTG) Pt will present with increased right shoulder strength to 5/ 5 for flexion, abduction, IR and ER to improve functional use of and pain in right arm by 10/11/21. LTG Duration 8 weeks Assessment Summary Assessment Pt reports relief w/treatment w/dec neck pain and dec scap numbness feeling. She did well with exercises w/questions answered but ddid require cues to avoid back ext during exercises. Physical Therapy Plan Frequency and Duration Frequency of Treatment 2x/Week Duration of Treatment 8 weeks Plan of Care Start Date 08/11/21 Plan of Care End Date 10/11/21 Next Visit Focus/Plan Next Note Type Treatment Note Next Visit Plan start work on core control & work on posture, work on scap depression ability.
--- NOTE | 2021-08-30 11:18 | PT.OTN ---
Current Diagnoses Pain in right shoulder (08/30/21) Physical Therapy Treatment Note PT-OP-A Visit Information Start: 08/07/21 13:53 Freq: Status: Active Protocol: Document 08/30/21 07:28 [facility] (Rec: 08/30/21 11:17 [facility] [id number]) Out-Patient Physical Therapy Visit Information Visit Information Visit Type Treatment Note Visit Note Valentine 04/04 visits Visit Start Time 07:34 Visit Stop Time 08:16 Total Visit Minutes 42 Visit Number 5 Number of PROPERTY MANAGEMENT ASSISTANT Visits 0 PT-OP-B Current Condition Start: 08/07/21 13:53 Freq: Status: Active Protocol: Document 08/11/21 07:30 MB (Rec: 08/11/21 07:52 MB [id number]) Current Condition History of Current Condition Onset Date 2014 Current Complaints Right scapular, neck and right forearm dull ache and pain History of Current Condition Pt has history of SLAP and labral tear right shoulder 2014. She did a lot of PT with last PT course in 2017. She prefers conservative treatment and has occ sharp pain upper arm area, some weakness and paresthesias. Pt has a history of scoliosis, lipoma, and thyroid nodule. Pt used to played a lot of tennis before 2014. In 2013, she started a new job and had to to a lot of heavy lifting. She noticed a lump on the back of her neck that bothered her . She stopped playing tennis in 2018. Recently, she was lifting her 15 month old daughter and she felt the old right right forearm pain. She con't with medial scapular and B neck pain. She had PT for her neck as well. 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 She takes care of her daughter. She is still breast feeding. Lifting over her head and reaching above her head increase the pain. She sleeps on her right side. She sleeps with one pillow under her head . Pressure on the shoulder blade helps. Prior Treatments and Tests Right shoulder MRI 2014 and PT Treatment Goals Patient/Caregiver Goals Come up with therapy program, increase strength and decrease pain PT-OP-C Subjective Start: 08/07/21 13:53 Freq: Status: Active Protocol: Document 08/30/21 07:28 [facility] (Rec: 08/30/21 11:17 [facility] [id number]) OP-PT Subjective Patient Comments Patient Comments Pt reports that was the most relief she has had in a long time. She could start moving her neck more and the numbness went away in her shoulder blade. PT reports it has started to come back w/normal movements Patient Reported Progress Improving PT-OP-J Posture/Palpation/Skin Start: 08/07/21 13:53 Freq: Status: Active Protocol: Document 08/11/21 07:30 MB (Rec: 08/11/21 16:05 MB [id number]) Posture Evaluation Comments Posture Comments Decreased thoracic kyphosis, anterior tilt pelvis, rounded shoulders, mild L convexity upper thoracic spine, right convexity lower thoracic spine , right iliac crest slightly higher than the left. PT-OP-K Range of Motion Start: 08/07/21 13:53 Freq: Status: Active Protocol: Document 08/11/21 07:30 MB (Rec: 08/11/21 16:05 MB [id number]) Cervical Spine Range of Motion Cervical Spine Active Testing Position Standing Flexion 45 Extension 40 Rotation Left 57 Rotation Right 70 Lateral Flexion Left 24 Lateral Flexion Right 29 Comments Pt has lipoma like nodule posterior right neck that is about a dime size Shoulder Goniometric Range of Motion Shoulder Left Shoulder ROM WFL Yes Testing Position Standing Flexion 164 Extension 50 Abduction 165 Comments IR behind back in standing to T7 Passive ER/IR in supine with shoulder in 90/90 is normal and equal to the right Mild pain with active shoulder flexion and abduction Right Shoulder ROM WFL Yes Testing Position Standing Flexion 160 Extension 50 Abduction 155 Comments IR behind back in standing to T9 (dominant arm) Passive ER/IR in supine with shoulder in 90/90 is normal and equal to the left PT-OP-M Strength Start: 08/07/21 13:53 Freq: Status: Active Protocol: Document 08/11/21 07:30 MB (Rec: 08/11/21 16:05 MB [id number]) Shoulder Strength Shoulder Manual Muscle Testing Left Flexion 5 Normal Abduction (C5) 5 Normal External Rotation 5 Normal Internal Rotation 5 Normal Right External Rotation 3+ Fair+ Internal Rotation 4 Good Comments Shoulder flexion and abduction MMT NT d/t pt c/o pain with AROM Elbow/Forearm Strength Elbow and Forearm Manual Muscle Testing Left Flexion (C6) 5 Normal Extension (C7) 5 Normal Pronation 5 Normal Supination 5 Normal Right Flexion (C6) 5 Normal Extension (C7) 5 Normal Pronation 5 Normal Supination 5 Normal PT-OP-Q Treatments Start: 08/07/21 13:53 Freq: Status: Active Protocol: Document 08/30/21 07:28 [facility] (Rec: 08/30/21 11:17 [facility] [id number]) Therapeutic Exercises Standing Exercises pivot prone Standing Exercise Name shrug, ER Of UE then scap dep Side bilateral Comments 10 wall posture Standing Exercise Name w/90/90 HAbd w/focus of back on wall Side bilateral Reps/Minutes 10 shoulder ER w/ resistance Side bilateral Resistance TB #1 Equipment Used back to wall Reps/Minutes 1x20 Comments needed mod cueing for spine aligned w/wall Manual Therapy Treatment Soft Tissue Mobilization lats Body Location R w/ant elev/post dep Mobilization Type Strumming,Sustained Pressure Intensity/Depth Moderate Body Position Sidelying Joint Mobilizations thoracic Comments 1. UPA R T6 &7 w/c/r ant elevation/post dep 2. transverse glide L T6 3.transverse glide R T2-3 FM ribs Comments caudal glides of ribs 7, 2 & 3 R w/c/r ant elevation/ post dep PA rib 7 FM w/PNF Neuro Re-Education Treatment Other Activities PNF Comments R scap post dep sustained hold progressed to w/UE pattern PT-OP-T Assessment and Plan Start: 08/07/21 13:53 Freq: Status: Active Protocol: Document 08/30/21 07:28 [facility] (Rec: 08/30/21 11:17 [facility] [id number]) Physical Therapy Assessment Goals 3 Impairment QuickDASH score reflects 43.18 % impairment Surgical Pathologist Goal (LTG) Pt will present with an improved QuickDASH score to reflect no more than 20% impairment to reflect improved function by 10/11/21. LTG Duration 8 weeks 2 Surgical Pathologist Goal (LTG) Pt will perform progressive HEP with I including thoracic and cervical flexibility, postural, core, shoulder and intrascapular strengthening and self-massage to decrease pain and improve function by 10/11/21. LTG Duration 8 weeks 1 Surgical Pathologist Goal (LTG) Pt will present with increased right shoulder strength to 5/ 5 for flexion, abduction, IR and ER to improve functional use of and pain in right arm by 10/11/21. LTG Duration 8 weeks Assessment Summary Assessment Pt had improved cervical rotation and improved scap mobility after manual treatment w/improved ability to settle scap on ribcage. Pt enocuraged to keep working on scap position at home to have improved carry over between sessions. Physical Therapy Plan Frequency and Duration Frequency of Treatment 2x/Week Duration of Treatment 8 weeks Plan of Care Start Date 08/11/21 Plan of Care End Date 10/11/21 Next Visit Focus/Plan Next Note Type Treatment Note Next Visit Plan start work on core control & work on posture, work on scap depression ability.
--- NOTE | 2021-09-05 08:15 | PT.OTN ---
Current Diagnoses Pain in right shoulder (09/05/21) Physical Therapy Treatment Note PT-OP-A Visit Information Start: 08/07/21 13:53 Freq: Status: Active Protocol: Document 09/05/21 07:29 SP (Rec: 09/05/21 08:45 SP [id number]) Out-Patient Physical Therapy Visit Information Visit Information Visit Type Treatment Note Visit Note [place] 05/05 visits SPTA attended tx, assisted DOOR PATCHER Kimberly w/ ed of HEP throughout tx as needed. Visit Start Time 07:30 Visit Stop Time 08:15 Total Visit Minutes 45 Visit Number 6 Number of DOOR PATCHER Visits 1 Evaluation Information Evaluation Date 08/11/21 PT-OP-B Current Condition Start: 08/07/21 13:53 Freq: Status: Active Protocol: Document 08/11/21 07:30 MB (Rec: 08/11/21 07:52 MB [id number]) Current Condition History of Current Condition Onset Date 2014 Current Complaints Right scapular, neck and right forearm dull ache and pain History of Current Condition Pt has history of SLAP and labral tear right shoulder 2014. She did a lot of PT with last PT course in 2017. She prefers conservative treatment and has occ sharp pain upper arm area, some weakness and paresthesias. Pt has a history of scoliosis, lipoma, and thyroid nodule. Pt used to played a lot of tennis before 2014. In 2013, she started a new job and had to to a lot of heavy lifting. She noticed a lump on the back of her neck that bothered her . She stopped playing tennis in 2018. Recently, she was lifting her 15 month old daughter and she felt the old right right forearm pain. She con't with medial scapular and B neck pain. She had PT for her neck as well. 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 She takes care of her daughter. She is still breast feeding. Lifting over her head and reaching above her head increase the pain. She sleeps on her right side. She sleeps with one pillow under her head . Pressure on the shoulder blade helps. Prior Treatments and Tests Right shoulder MRI 2014 and PT Treatment Goals Patient/Caregiver Goals Come up with therapy program, increase strength and decrease pain PT-OP-C Subjective Start: 08/07/21 13:53 Freq: Status: Active Protocol: Document 09/05/21 07:29 SP (Rec: 09/05/21 08:45 SP [id number]) OP-PT Subjective Patient Comments Patient Comments Pt. indicated that she is doing better since last session and that stretching seems to help her more than pressure point interventions. Indicated that she is performing her HEP. Patient Reported Progress Improving PT-OP-J Posture/Palpation/Skin Start: 08/07/21 13:53 Freq: Status: Active Protocol: Document 08/11/21 07:30 MB (Rec: 08/11/21 16:05 MB [id number]) Posture Evaluation Comments Posture Comments Decreased thoracic kyphosis, anterior tilt pelvis, rounded shoulders, mild L convexity upper thoracic spine, right convexity lower thoracic spine , right iliac crest slightly higher than the left. PT-OP-K Range of Motion Start: 08/07/21 13:53 Freq: Status: Active Protocol: Document 08/11/21 07:30 MB (Rec: 08/11/21 16:05 MB [id number]) Cervical Spine Range of Motion Cervical Spine Active Testing Position Standing Flexion 45 Extension 40 Rotation Left 57 Rotation Right 70 Lateral Flexion Left 24 Lateral Flexion Right 29 Comments Pt has lipoma like nodule posterior right neck that is about a dime size Shoulder Goniometric Range of Motion Shoulder Left Shoulder ROM WFL Yes Testing Position Standing Flexion 164 Extension 50 Abduction 165 Comments IR behind back in standing to T7 Passive ER/IR in supine with shoulder in 90/90 is normal and equal to the right Mild pain with active shoulder flexion and abduction Right Shoulder ROM WFL Yes Testing Position Standing Flexion 160 Extension 50 Abduction 155 Comments IR behind back in standing to T9 (dominant arm) Passive ER/IR in supine with shoulder in 90/90 is normal and equal to the left PT-OP-M Strength Start: 08/07/21 13:53 Freq: Status: Active Protocol: Document 08/11/21 07:30 MB (Rec: 08/11/21 16:05 MB [id number]) Shoulder Strength Shoulder Manual Muscle Testing Left Flexion 5 Normal Abduction (C5) 5 Normal External Rotation 5 Normal Internal Rotation 5 Normal Right External Rotation 3+ Fair+ Internal Rotation 4 Good Comments Shoulder flexion and abduction MMT NT d/t pt c/o pain with AROM Elbow/Forearm Strength Elbow and Forearm Manual Muscle Testing Left Flexion (C6) 5 Normal Extension (C7) 5 Normal Pronation 5 Normal Supination 5 Normal Right Flexion (C6) 5 Normal Extension (C7) 5 Normal Pronation 5 Normal Supination 5 Normal PT-OP-Q Treatments Start: 08/07/21 13:53 Freq: Status: Active Protocol: Document 09/05/21 07:29 SP (Rec: 09/05/21 08:45 SP [id number]) Cardio Equipment Upper Body Ergometer (UBE) Duration (Minutes) 6 RPM 120 Seat Position 8 Height 2.5 Other oine minute F/B. Therapeutic Exercises Sidelying Exercises open book Sidelying Exercise Name hand on head w/ breath end feel Side bilateral Resistance added to HEP Reps/Minutes 3 sec hold x5 Comments good feedback stretch, more open Standing Exercises pivot prone Standing Exercise Name shrug, ER Of UE then scap dep Side bilateral Comments 3 sec hold x10, Cues to maintain external rotation at end of motion. shoulder ER w/ resistance Side bilateral Resistance TB #1 Reps/Minutes 1x20 Comments self corrected for spinal positioning. miod cueing for hand postion. Other Exercises quadruped Other Exercise Name alternate UE ext Side bilateral Equipment Used dowel on back for alignment cues Reps/Minutes x8 Comments intermittent cues for CS neutral, no UT recruitment quadruped serratus press + Other Exercise Name initiated today in PT only Equipment Used stick across back Reps/Minutes x8 Comments cued no UT recruitment, scap depresion stab Manual Therapy Treatment Soft Tissue Mobilization lats Body Location R w/ant elev/post dep Mobilization Type Strumming,Sustained Pressure Intensity/Depth Moderate Body Position Sidelying Comments manual, instructed for self ball on wall scapular STMs Body Location UT, infraspinatus, rhomboid Mobilization Type Cross-Friction Intensity/Depth Moderate Body Position Sidelying Comments manual Manual Techniques PNF R scap Body Location R scap Body Position Sidelying Comments inferior/posterior w/ education on neutral positioning during scap retraction/ shld ER to decrease UT/post cervical mus recruitment. PT-OP-T Assessment and Plan Start: 08/07/21 13:53 Freq: Status: Active Protocol: Document 09/05/21 07:29 SP (Rec: 09/05/21 08:45 SP [id number]) Physical Therapy Assessment Goals 3 Impairment QuickDASH score reflects 43.18 % impairment [facility] Goal (LTG) Pt will present with an improved QuickDASH score to reflect no more than 20% impairment to reflect improved function by 10/11/21. LTG Duration 8 weeks 2 Compressor House Operator Goal (LTG) Pt will perform progressive HEP with I including thoracic and cervical flexibility, postural, core, shoulder and intrascapular strengthening and self-massage to decrease pain and improve function by 10/11/21. LTG Duration 8 weeks 1 [facility] Goal (LTG) Pt will present with increased right shoulder strength to 5/ 5 for flexion, abduction, IR and ER to improve functional use of and pain in right arm by 10/11/21. LTG Duration 8 weeks Assessment Summary Assessment Pt improved with self awarenss corrections of head chin tuck and CS ext to neutral and scapular retract/depression positioning during HEP review. Good understanding of self application of STMs using ball on wall for lat/ post scap this tx. Initiated quadruped today continue in PT due to intermittent cues required for scap stabilization. Pt's work schedule will be changing 730 -4 3days / wk so need to cancel remaining appts after Fri until knows when can come in and balance childcare. Will call back to reschedule. Physical Therapy Plan Frequency and Duration Frequency of Treatment 2x/Week Duration of Treatment 8 weeks Plan of Care Start Date 08/11/21 Plan of Care End Date 10/11/21 Therapeutic Interventions Therapeutic Interventions Aquatic Therapy,Balance Training,Canalithic Repositioning,Coordination Training,Home Exercise Program ,Joint Mobilizations,Manual Therapy,Neuromuscular Re- education,Patient/Caregiver Education,Self-Care/Home Management,Soft Tissue Mobilization,Taping, Therapeutic Activities, Therapeutic Exercises Modalities Cold Pack/Ice Massage,Electric Stimulation,Hot Packs, Ultrasound Next Visit Focus/Plan Next Note Type Treatment Note Next Visit Plan Recheck quadruped. POC: scapular depression stabilization and core control & work on posture.
--- NOTE | 2021-09-08 08:12 | PT.OTN ---
Current Diagnoses Pain in right shoulder (09/08/21) Physical Therapy Treatment Note PT-OP-A Visit Information Start: 08/07/21 13:53 Freq: Status: Active Protocol: Document 09/08/21 07:30 MB (Rec: 09/08/21 08:11 MB [id number]) Out-Patient Physical Therapy Visit Information Visit Information Visit Type Treatment Note Visit Note [place] 06/04 visits Visit Start Time 07:30 Visit Stop Time 08:11 Total Visit Minutes 41 Visit Number 7 Number of COMMUNICATIONS MARKETING INTERN Visits 0 Evaluation Information Evaluation Date 08/11/21 PT-OP-B Current Condition Start: 08/07/21 13:53 Freq: Status: Active Protocol: Document 08/11/21 07:30 MB (Rec: 08/11/21 07:52 MB [id number]) Current Condition History of Current Condition Onset Date 2014 Current Complaints Right scapular, neck and right forearm dull ache and pain History of Current Condition Pt has history of SLAP and labral tear right shoulder 2014. She did a lot of PT with last PT course in 2017. She prefers conservative treatment and has occ sharp pain upper arm area, some weakness and paresthesias. Pt has a history of scoliosis, lipoma, and thyroid nodule. Pt used to played a lot of tennis before 2014. In 2013, she started a new job and had to to a lot of heavy lifting. She noticed a lump on the back of her neck that bothered her . She stopped playing tennis in 2018. Recently, she was lifting her 15 month old daughter and she felt the old right right forearm pain. She con't with medial scapular and B neck pain. She had PT for her neck as well. 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 She takes care of her daughter. She is still breast feeding. Lifting over her head and reaching above her head increase the pain. She sleeps on her right side. She sleeps with one pillow under her head . Pressure on the shoulder blade helps. 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 She will be using the computer a lot. She would like to cancel all current scheduled appointments until she learns her schedule. PT-OP-J Posture/Palpation/Skin Start: 08/07/21 13:53 Freq: Status: Active Protocol: Document 08/11/21 07:30 MB (Rec: 08/11/21 16:05 MB [id number]) Posture Evaluation Comments Posture Comments Decreased thoracic kyphosis, anterior tilt pelvis, rounded shoulders, mild L convexity upper thoracic spine, right convexity lower thoracic spine , right iliac crest slightly higher than the left. PT-OP-K Range of Motion Start: 08/07/21 13:53 Freq: Status: Active Protocol: Document 08/11/21 07:30 MB (Rec: 08/11/21 16:05 MB [id number]) Cervical Spine Range of Motion Cervical Spine Active Testing Position Standing Flexion 45 Extension 40 Rotation Left 57 Rotation Right 70 Lateral Flexion Left 24 Lateral Flexion Right 29 Comments Pt has lipoma like nodule posterior right neck that is about a dime size Shoulder Goniometric Range of Motion Shoulder Left Shoulder ROM WFL Yes Testing Position Standing Flexion 164 Extension 50 Abduction 165 Comments IR behind back in standing to T7 Passive ER/IR in supine with shoulder in 90/90 is normal and equal to the right Mild pain with active shoulder flexion and abduction Right Shoulder ROM WFL Yes Testing Position Standing Flexion 160 Extension 50 Abduction 155 Comments IR behind back in standing to T9 (dominant arm) Passive ER/IR in supine with shoulder in 90/90 is normal and equal to the left PT-OP-M Strength Start: 08/07/21 13:53 Freq: Status: Active Protocol: Document 08/11/21 07:30 MB (Rec: 08/11/21 16:05 MB [id number]) Shoulder Strength Shoulder Manual Muscle Testing Left Flexion 5 Normal Abduction (C5) 5 Normal External Rotation 5 Normal Internal Rotation 5 Normal Right External Rotation 3+ Fair+ Internal Rotation 4 Good Comments Shoulder flexion and abduction MMT NT d/t pt c/o pain with AROM Elbow/Forearm Strength Elbow and Forearm Manual Muscle Testing Left Flexion (C6) 5 Normal Extension (C7) 5 Normal Pronation 5 Normal Supination 5 Normal Right Flexion (C6) 5 Normal Extension (C7) 5 Normal Pronation 5 Normal Supination 5 Normal PT-OP-Q Treatments Start: 08/07/21 13:53 Freq: Status: Active Protocol: Document 09/08/21 07:30 MB (Rec: 09/08/21 08:11 MB [id number]) Cardio Equipment Upper Body Ergometer (UBE) Duration (Minutes) 10 Other 2' forward and 2' backwards Therapeutic Exercises Supine Exercises TS ext and rolling Comments Pt perpendicular over roller and mobs pec stretch over foam roller Side bilateral Comments Ed for pelvic tilt and spine flat Sitting Exercises UT and levator scap stretch Side right Comments Pt does standing and PT ed this is good to day seated CS rotation w/ head nods Comments Pt performs well today scap retraction Comments Pt performs today and shoulder rolls Standing Exercises wall posture Standing Exercise Name As written, butt to wall, roll vertebra up shoulder ER w/ resistance Side bilateral Resistance Level 1 TB Comments 1x20, pt is able to perform good form thercane Comments Pt reports too much pressure Racquet ball massage Standing Exercise Name MWM, infraspinatus Side right Comments Only do latissimus dorsi, intrascapular Other Exercises Open book Comments Pt demo today PT-OP-T Assessment and Plan Start: 08/07/21 13:53 Freq: Status: Active Protocol: Document 09/08/21 07:30 MB (Rec: 09/08/21 08:11 MB [id number]) Physical Therapy Assessment Goals 3 Impairment QuickDASH score reflects 43.18 % impairment Judicial Reporter Goal (LTG) Pt will present with an improved QuickDASH score to reflect no more than 20% impairment to reflect improved function by 10/11/21. LTG Duration 8 weeks 2 Care Home Goal (LTG) Pt will perform progressive HEP with I including thoracic and cervical flexibility, postural, core, shoulder and intrascapular strengthening and self-massage to decrease pain and improve function by 10/11/21. LTG Duration 8 weeks 1 Care Home Goal (LTG) Pt will present with increased right shoulder strength to 5/ 5 for flexion, abduction, IR and ER to improve functional use of and pain in right arm by 10/11/21. LTG Duration 8 weeks Assessment Summary Assessment Pt demonstrates exercises well and removed several exercises today. She is starting a new job and will have to reschedule appointments when she can. Physical Therapy Plan Frequency and Duration Frequency of Treatment 2x/Week Duration of Treatment 8 weeks Plan of Care Start Date 08/11/21 Plan of Care End Date 10/11/21 Therapeutic Interventions Therapeutic Interventions Aquatic Therapy,Balance Training,Canalithic Repositioning,Coordination Training,Home Exercise Program ,Joint Mobilizations,Manual Therapy,Neuromuscular Re- education,Patient/Caregiver Education,Self-Care/Home Management,Soft Tissue Mobilization,Taping, Therapeutic Activities, Therapeutic Exercises Modalities Cold Pack/Ice Massage,Electric Stimulation,Hot Packs, Ultrasound Next Visit Focus/Plan Next Note Type Treatment Note Next Visit Plan May need a progress note depending on when she gets back in to PT Progress foam roller exercises , strengtheing over it with core engaged and spine flat
--- NOTE | 2021-09-22 13:40 | PT.OPDS ---
Current Diagnoses Pain in right shoulder (09/08/21) Visit Care Team Role Provider Type MARTIN Hoang Attending Provider Advanced Manufacturing Teacher Primary Care Provider Referring Provider Specialty: Medical Address: [address] [place] [address], [facility] Email: [email or web address] Visit Number Visit Number 7 Discharge Summary PT-OP-B Current Condition Start: 08/07/21 13:53 Freq: Status: Active Protocol: Document 08/11/21 07:30 MB (Rec: 08/11/21 07:52 MB [id number]) Current Condition History of Current Condition Onset Date 2014 Current Complaints Right scapular, neck and right forearm dull ache and pain History of Current Condition Pt has history of SLAP and labral tear right shoulder 2014. She did a lot of PT with last PT course in 2018. She prefers conservative treatment and has occ sharp pain upper arm area, some weakness and paresthesias. Pt has a history of scoliosis, lipoma, and thyroid nodule. Pt used to played a lot of tennis before 2014. In 2013, she started a new job and had to to a lot of heavy lifting. She noticed a lump on the back of her neck that bothered her . She stopped playing tennis in 2018. Recently, she was lifting her 15 month old daughter and she felt the old right right forearm pain. She con't with medial scapular and B neck pain. She had PT for her neck as well. 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 She takes care of her daughter. She is still breast feeding. Lifting over her head and reaching above her head increase the pain. She sleeps on her right side. She sleeps with one pillow under her head . Pressure on the shoulder blade helps. 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 She will be using the computer a lot. She would like to cancel all current scheduled appointments until she learns her schedule. PT-OP-J Posture/Palpation/Skin Start: 08/07/21 13:53 Freq: Status: Active Protocol: Document 08/11/21 07:30 MB (Rec: 08/11/21 16:05 MB [id number]) Posture Evaluation Comments Posture Comments Decreased thoracic kyphosis, anterior tilt pelvis, rounded shoulders, mild L convexity upper thoracic spine, right convexity lower thoracic spine , right iliac crest slightly higher than the left. PT-OP-K Range of Motion Start: 08/07/21 13:53 Freq: Status: Active Protocol: Document 08/11/21 07:30 MB (Rec: 08/11/21 16:05 MB [id number]) Cervical Spine Range of Motion Cervical Spine Active Testing Position Standing Flexion 45 Extension 40 Rotation Left 57 Rotation Right 70 Lateral Flexion Left 24 Lateral Flexion Right 29 Comments Pt has lipoma like nodule posterior right neck that is about a dime size Shoulder Goniometric Range of Motion Shoulder Left Shoulder ROM WFL Yes Testing Position Standing Flexion 164 Extension 50 Abduction 165 Comments IR behind back in standing to T7 Passive ER/IR in supine with shoulder in 90/90 is normal and equal to the right Mild pain with active shoulder flexion and abduction Right Shoulder ROM WFL Yes Testing Position Standing Flexion 160 Extension 50 Abduction 155 Comments IR behind back in standing to T9 (dominant arm) Passive ER/IR in supine with shoulder in 90/90 is normal and equal to the left PT-OP-M Strength Start: 08/07/21 13:53 Freq: Status: Active Protocol: Document 08/11/21 07:30 MB (Rec: 08/11/21 16:05 MB [id number]) Shoulder Strength Shoulder Manual Muscle Testing Left Flexion 5 Normal Abduction (C5) 5 Normal External Rotation 5 Normal Internal Rotation 5 Normal Right External Rotation 3+ Fair+ Internal Rotation 4 Good Comments Shoulder flexion and abduction MMT NT d/t pt c/o pain with AROM Elbow/Forearm Strength Elbow and Forearm Manual Muscle Testing Left Flexion (C6) 5 Normal Extension (C7) 5 Normal Pronation 5 Normal Supination 5 Normal Right Flexion (C6) 5 Normal Extension (C7) 5 Normal Pronation 5 Normal Supination 5 Normal PT-OP-T Assessment and Plan Start: 08/07/21 13:53 Freq: Status: Active Protocol: Document 09/22/21 13:39 MB (Rec: 09/22/21 13:40 MB [id number]) Physical Therapy Plan Discharge Physical Therapy Discharge Reasons Patient Request Discharge Comments Pt has started a new job and cannot complete more PT d/t work schedule and childcare needs. Will d/c PT.
== END 2021-12-12 09:45 ==
LOC: PHYS 07:30
PROVIDERS: PCP Registered Nurse; Referring Provider Registered Nurse; Visit Provider Registered Nurse
DX: M25.511 Pain in right shoulder (principal)
CPT/HCPCS: 97110; 97140; 97161

== ENCOUNTER → 2021-09-20 18:26 | Outpatient (CLI) | payer OTHER, SELFPAY | PROVIDERS: PCP Registered Nurse; Referring Provider Internal Medicine; Visit Provider Internal Medicine | DX: Z23 Encounter for immunization (principal) | CPT/HCPCS: 90471; 90686 ==

== ENCOUNTER → 2022-05-31 07:00 | Outpatient (CLI) | payer OTHER, SELFPAY ==
[2022-05-31 09:54] LABS: Appearance Urine UA CLEAR; Bilirubin Urine UA NEGATIVE (NEGATIVE); Color Urine UA YELLOW; Glucose Urine UA NEGATIVE (Negative); Ketones Urine UA NEGATIVE (NEGATIVE); Leukocyte Esterase Urine UA NEGATIVE (NEGATIVE); Nitrite Urine UA NEGATIVE (Negative); Occult Blood Urine UA NEGATIVE (Negative); Protein Urine UA NEGATIVE (Negative); Specific Gravity Urine UA <=1.005 (1.000-1.035); Urobilinogen Urine UA 0.2 E.U./dL (0.2)
[2022-05-31 10:27] LABS: Bacteria Urine None Seen; Culture Indicated Urine Cult Not Indicated; RBC Urine None Seen (0-5/HPF); Squamous Epithelial Cell Urine 0-1 /HPF (0-5/HPF); WBC Urine None Seen (0-5/HPF)
== END ==
PROVIDERS: PCP Internal Medicine; Referring Provider Internal Medicine; Visit Provider Internal Medicine
DX: R10.2 Pelvic and perineal pain (principal)
CPT/HCPCS: 81001

== ENCOUNTER → 2022-07-11 06:59 | Outpatient (CLI) | payer OTHER, SELFPAY ==
[2022-07-11 09:07] LABS: Cholesterol 148 mg/dL (140-199); Glucose 86 mg/dL (70-100); HDL Cholesterol 72 mg/dL (40-60); LDL Cholesterol Calculated 69 mg/dL (<100); Triglycerides 33 mg/dL (35-150)
[2022-07-11 09:34] LABS: TSH w/ Reflex to FT4 1.05 uIU/mL (0.47-4.68)
== END ==
PROVIDERS: PCP Internal Medicine; Referring Provider Internal Medicine; Visit Provider Internal Medicine
DX: E04.1 Nontoxic single thyroid nodule (principal); Z00.00 Encounter for general adult medical examination without abnormal findings
CPT/HCPCS: 36415; 80061; 82947; 84443

== ENCOUNTER → 2022-09-19 15:36 | Outpatient (CLI) | payer OTHER, SELFPAY ==
[2022-09-19 16:48] LABS: Add Manual Diff / Slide Review NO; Basophils Absolute Auto 0 /uL (0-100); Basophils Percent Auto 0.2 % (0-2); Eosinophils Absolute Auto 100 /uL (0-450); Eosinophils Percent Auto 0.9 % (2-4); Hematocrit 37.8 % (36-46); Hemoglobin 13.5 g/dL (12.0-16.0); Lymphocytes Absolute Auto 1700 /uL (1100-4500); Lymphocytes Percent Auto 20.8 % (25-40); Mean Corpuscular HGB Conc 35.6 % (30-36); Mean Corpuscular Hemoglobin 31.5 PG (26-34); Mean Corpuscular Volume 88.5 fL (80-100); Monocytes Absolute Auto 400 /uL (0-900); Monocytes Percent Auto 4.7 % (3-14); Neutrophils Absolute Auto 6200 /uL (1500-7000); Neutrophils Percent Auto 73.4 % (50-75); Platelet Count 247 X10^3/uL (150-400); Red Blood Cell Count 4.28 X10^6/uL (4.0-5.2); Red Cell Distribution Width 12.6 % (11.6-14.8); White Blood Cell Count 8.4 X10^3/uL (4.5-11.0)
[2022-09-19 17:05] LABS: Appearance Urine UA CLEAR; Bilirubin Urine UA NEGATIVE (NEGATIVE); Color Urine UA YELLOW; Glucose Urine UA NEGATIVE (Negative); Ketones Urine UA NEGATIVE (NEGATIVE); Leukocyte Esterase Urine UA TRACE (NEGATIVE); Nitrite Urine UA NEGATIVE (Negative); Occult Blood Urine UA NEGATIVE (Negative); Protein Urine UA NEGATIVE (Negative); Specific Gravity Urine UA <=1.005 (1.000-1.035); Urobilinogen Urine UA 0.2 E.U./dL (0.2)
[2022-09-19 17:10] LABS: pH Urine UA 6.5 (4.5-8.0)
[2022-09-19 17:18] LABS: Bacteria Urine None Seen; RBC Urine None Seen (0-5/HPF); WBC Urine None Seen (0-5/HPF)
[2022-09-20 11:36] LABS: Varicella IgG Antibody 298 index (Immune >165)
[2022-09-20 17:28] LABS: Hepatitis B Surface Antigen NEGATIVE s/c (NEGATIVE)
[2022-09-20 17:57] LABS: HIV 1 & 2 Ab/Ag 4th Gen Combo NEGATIVE (NEGATIVE); Hep C Virus Ab w/Reflex Quant NEGATIVE s/c (NEGATIVE)
[2022-09-21 07:36] LABS: RPR Screen Non Reactive (Non Reactive)
== END ==
PROVIDERS: PCP Internal Medicine; Referring Provider Family Medicine; Visit Provider Family Medicine
DX: O09.521 Supervision of elderly multigravida, first trimester (principal); Z31.5 Encounter for procreative genetic counseling
CPT/HCPCS: 36415; 80055; 81003; 81015; 86787; 86803; 86850; 86900; 86901; 87389

== ENCOUNTER → 2022-11-26 12:29 | Outpatient (CLI) | payer OTHER, SELFPAY ==
--- NOTE | 2022-11-26 12:30 | DI.US.S_ITS ---
PROCEDURE: US OB >= 14 WEEKS FETUS INDICATIONS: ANATOMY OUTSIDE/PRIOR DATING DATA: Last menstrual period (LMP): 07/06/2022 LMP-based estimated date of delivery (MAGALY): 04/12/2023 First dating scan (date and location): 11/26/2022 Estimated date of delivery (AMGALY) from first dating scan: 04/13/2023 The calculations are made using the working MAGALY of 04/12/2023. TECHNIQUE: Real-time scanning was performed of the fetus, with image documentation and biometric measurements. Endovaginal scanning: Not indicated COMPARISON: None. FINDINGS: General: A single living intrauterine gestation is present. Presentation: Vertex. Placenta: Placental position is posterior, without previa. Amniotic fluid index: 8.8 cm, normal range is 5-24 cm. Single deepest vertical pocket is 2.5 cm. heart rate: 143 beats per minute. Maternal cervical canal: 3.3 cm long. Normal lower limit is 2.5 cm. biometrics: Biparietal diameter: 4.7 cm, 20 weeks, 1 day. Head circumference: 17.4 cm, 19 weeks, 6 days. Abdominal circumference: 15.3 cm, 20 weeks, 4 days. Femur length: 3.4 cm, 20 weeks, 4 days. Clinically estimated gestational age: 20 weeks, 3 days. Composite gestational age from present scan: 20 weeks, 2 days. Estimated weight and percentile: 356 grams, 47 percent. Anatomic survey: Neuro: Ventricles are non-dilated at less than 10 mm. Cisterna magna is normal at 3-11 mm. Cerebellum is normal in size and morphology. Nuchal skin fold: Normal at less than 6 mm between 14-21 weeks gestational age. Face: Nose and lips, facial profile are normal. Spine: No evidence for spina bifida. Heart: 4-chambered heart is present, with normal ventricular outflow tracts. Diaphragm: Diaphragm is intact. Stomach: Left-sided stomach is present. Kidneys: No hydronephrosis. Normal is less than 5 mm in 2nd trimester, less than 7 mm in 3rd trimester. Cord: 3-vessel cord has orthotopic insertion. Bladder: Normal in size. Extremities: All 4 extremities identified. IMPRESSION: 1. Single live intrauterine gestation with fetus in vertex presentation. heart rate is 143 beats per minute. Normal amount of amniotic fluid. Normal growth. Estimated weight is at 47 percent. 2. Normal anatomic survey. We strive to produce accurate, complete, and clear reports of imaging services. To assist us in improving patient care, this report was composed using standard report templates and voice recognition software. Therefore, it may contain abnormal punctuation, insertions and/or omissions. Occasional wrong-word or sound-alike substitutions may occur. Though we review the report and make efforts to correct it, we do recommend that the report be read carefully in proper context to recognize any text inaccuracies. Dictated by: Jonathan Hein M.D. on 11/26/2022 at 15:25 Approved by: Jonathan Hein M.D. on 11/26/2022 at 15:27
== END ==
PROVIDERS: PCP Internal Medicine; Referring Provider Family Medicine; Visit Provider Family Medicine
DX: Z34.81 Encounter for supervision of other normal pregnancy, first trimester (principal); Z3A.20 20 weeks gestation of pregnancy
CPT/HCPCS: 76811

== ENCOUNTER → 2023-01-12 08:00 | Outpatient (CLI) | payer OTHER, SELFPAY ==
[2023-01-12 09:31] LABS: GTT (PREG) 1 Hour PP 50gm Dose 95 mg/dL (76-139)
== END ==
PROVIDERS: PCP Internal Medicine; Referring Provider Family Medicine; Visit Provider Family Medicine
DX: Z34.81 Encounter for supervision of other normal pregnancy, first trimester (principal); Z3A.25 25 weeks gestation of pregnancy
CPT/HCPCS: 36415; 82950

== ENCOUNTER → 2023-01-15 12:14 | Outpatient (CLI) | payer OTHER, SELFPAY ==
[2023-01-15 12:53] LABS: Add Manual Diff / Slide Review NO; Basophils Absolute Auto 0 /uL (0-100); Basophils Percent Auto 0.1 % (0-2); Eosinophils Absolute Auto 100 /uL (0-450); Eosinophils Percent Auto 0.6 % (2-4); Hematocrit 35.3 % (36-46); Lymphocytes Absolute Auto 1400 /uL (1100-4500); Lymphocytes Percent Auto 12.8 % (25-40); Mean Corpuscular HGB Conc 33.9 % (30-36); Mean Corpuscular Hemoglobin 31.1 PG (26-34); Mean Corpuscular Volume 91.8 fL (80-100); Monocytes Absolute Auto 500 /uL (0-900); Monocytes Percent Auto 4.8 % (3-14); Neutrophils Absolute Auto 8900 /uL (1500-7000); Neutrophils Percent Auto 81.7 % (50-75); Platelet Count 229 X10^3/uL (150-400); Red Blood Cell Count 3.84 X10^6/uL (4.0-5.2); Red Cell Distribution Width 13.2 % (11.6-14.8); White Blood Cell Count 10.9 X10^3/uL (4.5-11.0)
== END ==
PROVIDERS: PCP Internal Medicine; Referring Provider Family Medicine; Visit Provider Family Medicine
DX: Z34.92 Encounter for supervision of normal pregnancy, unspecified, second trimester (principal); Z3A.27 27 weeks gestation of pregnancy
CPT/HCPCS: 36415; 85025

== ENCOUNTER → 2023-02-04 07:48 | Outpatient (CLI) | payer OTHER, SELFPAY ==
--- NOTE | 2023-02-04 07:49 | DI.US.S_ITS ---
PROCEDURE: US OB LIMITED INDICATIONS: GROWTH FOR SIZE < DATES OUTSIDE/PRIOR DATING DATA: Last menstrual period (LMP): 07/06/22. LMP-based estimated date of delivery (MAGALY): 04/12/23. First dating scan (date and location): 11/26/22. Estimated date of delivery (MAGALY) from first dating scan: 04/13/23. The calculations are made using the clinical MAGALY of 04/12/23. TECHNIQUE: Real-time scanning was performed of the fetus, with image documentation and biometric measurements. Endovaginal scanning: Not performed COMPARISON: None. FINDINGS: General: A single living intrauterine gestation is present. Presentation: Vertex. Placenta: Placental position is posterior , without previa. Amniotic fluid index: 12.5 cm, normal range is 5-24 cm. Single deepest vertical pocket is 4.6 cm. heart rate: 147 beats per minute. Maternal cervical canal: Closed and 3.6 cm long. Normal lower limit is 2.5 cm. biometrics: Biparietal diameter: 7.3 cm, 29 weeks three days Head circumference: 26.6 cm, 29 weeks 0 days Abdominal circumference: 24.8 cm, 29 weeks 0 days Femur length: 5.6 cm, 29 weeks four days Clinically estimated gestational age: 30 weeks three days Composite gestational age from present scan: 29 weeks two days Estimated weight and percentile: 1360 g, 9th percentile IMPRESSION: 1. Single living intrauterine with growth eight days behind the expected gestational age. 2. Closed cervix and normal amniotic fluid volume. We strive to produce accurate, complete, and clear reports of imaging services. To assist us in improving patient care, this report was composed using standard report templates and voice recognition software. Therefore, it may contain abnormal punctuation, insertions and/or omissions. Occasional wrong-word or sound-alike substitutions may occur. Though we review the report and make efforts to correct it, we do recommend that the report be read carefully in proper context to recognize any text inaccuracies. Dictated by: Mary Haile M.D. on 02/04/2023 at 9:34 Approved by: Mary Haile M.D. on 02/04/2023 at 9:38
== END ==
PROVIDERS: PCP Internal Medicine; Referring Provider Family Medicine; Visit Provider Family Medicine
DX: Z34.81 Encounter for supervision of other normal pregnancy, first trimester (principal); Z3A.30 30 weeks gestation of pregnancy
CPT/HCPCS: 76815

== ENCOUNTER → 2023-03-05 08:12 | Outpatient (CLI) | payer OTHER, SELFPAY ==
--- NOTE | 2023-03-05 08:13 | DI.US.S_ITS ---
PROCEDURE: US OB LIMITED INDICATIONS: growth check OUTSIDE/PRIOR DATING DATA: Last menstrual period (LMP): 07/06/2022. LMP-based estimated date of delivery (MAGALY): 04/12/2023. First dating scan (date and location): 11/26/2022. Estimated date of delivery (MAGALY) from first dating scan: 04/13/2023. The calculations are made using the clinical MAGALY of 04/12/2023. TECHNIQUE: Real-time scanning was performed of the fetus, with image documentation. COMPARISON: [facility], , OB LIMITED, 02/04/2023, 7:56. FINDINGS: A single living intrauterine gestation is present. Presentation: Vertex. Placenta: Placental position is posterior, without previa. Amniotic fluid index: 15.8 cm, normal range is 5-24 cm. Single deepest vertical pocket is 4.9 cm. heart rate: 125 beats per minute. Maternal cervical canal: 5.7 cm long. Normal lower limit is 2.5 cm. Clinically estimated gestational age: 34 weeks 4 days Estimated gestational age from initial scan: 33 weeks 5 days estimated weight: 2184 g, 16th percentile. IMPRESSION: Single live intrauterine with ultrasound gestational age today of 34 weeks 4 days. BRANDI is within normal limits. Dictated by: Deloris Maradiaga M.D. on 03/05/2023 at 16:13 Approved by: Deloris Maradiaga M.D. on 03/05/2023 at 16:14
== END ==
PROVIDERS: PCP Internal Medicine; Referring Provider Family Medicine; Visit Provider Family Medicine
DX: Z34.83 Encounter for supervision of other normal pregnancy, third trimester (principal); Z3A.34 34 weeks gestation of pregnancy
CPT/HCPCS: 76815

== ENCOUNTER 2023-03-12 10:35 | Outpatient (CLI) | payer OTHER, SELFPAY | END 2023-03-12 11:05 | disposition home or self-care (01) | LOC: OB 03-15 14:24 | PROVIDERS: PCP Family Medicine; Referring Provider Family Medicine; Visit Provider Family Medicine | DX: O36.8330 Maternal care for abnormalities of the fetal heart rate or rhythm, third trimester, not applicable or unspecified (principal); Z3A.35 35 weeks gestation of pregnancy | CPT/HCPCS: 59025; 87653; G0378; G0379 ==

== ENCOUNTER → 2023-03-12 10:35 | Outpatient (CLI) | payer OTHER, SELFPAY ==
[2023-03-13 10:23] LABS: Strep Grp B PCR NEG for Grp B Strep
== END ==
PROVIDERS: PCP Family Medicine; Visit Provider Family Medicine
DX: Z3A.35 35 weeks gestation of pregnancy (principal)
CPT/HCPCS: 87653

== ENCOUNTER → 2023-04-01 08:53 | Outpatient (CLI) | payer OTHER, SELFPAY ==
--- NOTE | 2023-04-01 08:54 | DI.US.S_ITS ---
PROCEDURE: US OB FOLLOW UP INDICATIONS: SMALL FOR GESTATIONAL AGE OUTSIDE/PRIOR DATING DATA: Last menstrual period (LMP): 07/06/2022. LMP-based estimated date of delivery (MAGALY): 04/12/2023. First dating scan (date and location): 11/26/2022. Estimated date of delivery (MAGALY) from first dating scan: 04/13/2023. The calculations are made using the clinical MAGALY of 04/12/2023. TECHNIQUE: Real-time scanning was performed of the fetus, with image documentation and biometric measurements. Endovaginal scanning: Not performed COMPARISON: None. FINDINGS: General: A single living intrauterine gestation is present. Presentation: Vertex. Placenta: Placental position is posterior , without previa. Amniotic fluid index: 11.4 cm, normal range is 5-24 cm. Single deepest vertical pocket is 5.7 cm. heart rate: 122 beats per minute. Maternal cervical canal: 4.1 cm long. Normal lower limit is 2.5 cm. biometrics: Biparietal diameter: 9.2 cm, 37 weeks 3 days Head circumference: 32.2 cm, 36 weeks 3 days Abdominal circumference: 33.4 cm, 37 weeks 2 days Femur length: 7.1 cm, 36 weeks 3 days Clinically estimated gestational age: 38 weeks 3 days Composite gestational age from present scan: 36 weeks 6 days Estimated weight and percentile: 3090 g, 29th percentile Other: Not applicable. IMPRESSION: Single living intrauterine at 38 weeks 3 days, MAGALY of 04/12/2023. Estimated weight of 3090 g, 29th percentile. We strive to produce accurate, complete, and clear reports of imaging services. To assist us in improving patient care, this report was composed using standard report templates and voice recognition software. Therefore, it may contain abnormal punctuation, insertions and/or omissions. Occasional wrong-word or sound-alike substitutions may occur. Though we review the report and make efforts to correct it, we do recommend that the report be read carefully in proper context to recognize any text inaccuracies. Dictated by: Federico Patel M.D. on 04/01/2023 at 10:38 Approved by: Federico Patel M.D. on 04/01/2023 at 10:41
== END ==
PROVIDERS: PCP Family Medicine; Referring Provider Family Medicine; Visit Provider Family Medicine
DX: O36.5990 Maternal care for other known or suspected poor fetal growth, unspecified trimester, not applicable or unspecified (principal); Z3A.38 38 weeks gestation of pregnancy
CPT/HCPCS: 76816

== ENCOUNTER 2023-04-08 23:48 | Inpatient (IN) | payer OTHER, SELFPAY ==
[2023-04-09 00:42] VITALS: BP 101/53
[2023-04-09] MEDS: LACTATED RINGERS 1,000 ML 999 ML IV (00:45)
[2023-04-09 00:53] LABS: Add Manual Diff / Slide Review NO; Basophils Absolute Auto 0 /uL (0-100); Basophils Percent Auto 0.3 % (0-2); Eosinophils Absolute Auto 100 /uL (0-450); Eosinophils Percent Auto 0.6 % (2-4); Hematocrit 39.5 % (36-46); Hemoglobin 13.7 g/dL (12.0-16.0); Lymphocytes Absolute Auto 2000 /uL (1100-4500); Lymphocytes Percent Auto 16.2 % (25-40); Mean Corpuscular HGB Conc 34.6 % (30-36); Mean Corpuscular Hemoglobin 31.7 PG (26-34); Mean Corpuscular Volume 91.5 fL (80-100); Monocytes Absolute Auto 600 /uL (0-900); Neutrophils Absolute Auto 9500 /uL (1500-7000); Neutrophils Percent Auto 77.9 % (50-75); Platelet Count 219 X10^3/uL (150-400); Red Blood Cell Count 4.31 X10^6/uL (4.0-5.2); Red Cell Distribution Width 13.1 % (11.6-14.8); White Blood Cell Count 12.2 X10^3/uL (4.5-11.0)
[2023-04-09] MEDS: FENT 2MCG/ML BUPIV 0.125% EPI 200 MCG/100 ML PLAST..BAG 8 MCG EPIDURAL (01:20)
--- NOTE | 2023-04-09 01:28 | P.HPOB_ITS ---
OB HPI Date/Time Date of admission: 04/09/23 Date Patient Seen: 04/09/23 Time Patient Seen: 01:28 History of Present Condition Chief complaint: labor MAGALY Calculator Estimated Delivery Date Method Current WG Current Estimate 04/12/23 Manual 39w 4d Final MAGALY - LYSSA Other Estimates 04/12/23 LMP (Certain) 39w 4d 04/11/23 Ultrasound #1 39w 5d Estimated Gestational Age (weeks): 39w4d : 2 Para: 1 Narrative: 33yo at 39w4d here with LOF and contractions. Pt reports feeling a gush of fluid around 10:30pm. She had been cramping all day, with more consistent contractions around the time of the LOF. She denies any vaginal bleeding. She is feeling her baby move regularly. The pts was complicated by SGA baby at the 9th percentile at 30wks, however resolved to the 16th and then 29th percentile at 38wks. care: good care, initiated at week # (33) and pounds weight gain (8) Dating criteria OB: LMP confirmed by 1st trimester US Ultrasounds: normal 1st trimester US and normal mid trimester US Obstetrical complications: growth restriction Medical complications OB: none Preadmission Labs Last OB Lab Results: Blood Type A Positive 04/09/23 00:35 Antibody Screen Negative 04/09/23 00:35 Hematocrit 39.5 % (36-46) 04/09/23 00:35 Hemoglobin 13.7 g/dL (12.0-16.0) 04/09/23 00:35 Hepatitis B Surface Antigen Negative s/c (NEGATIVE) 09/19/22 15 :55 Hepatitis C Antibody Negative s/c (NEGATIVE) 09/19/22 15:55 Rubella Antibody 114.0 IU/mL (>15) 09/19/22 15:55 Varicella-Zoster IgG Antibody 298 index (Immune >165) 09/19/22 15:55 Glucose 1 Hour 95 mg/dL (76-139) 01/12/23 09:09 Group B Streptococcus (PCR) Neg for grp b strep 03/12/23 10:35 Genetic Screens: Cell-free DNA: Normal Prior (ies) Past Pregnancies Del. Date GA/Weeks Labor Lgth Wt Sex Route Outcome Anesthesia Place Delv Breastfeed Preg Comp Name 05/05/20 40.5 8 7 lb 9 oz Female vaginal live - full [place] 11 months none Emily Delivery Date: 05/05/20 Last Updated by: Amisha Laboy RN episiotomy Evaluation Evaluation Baseline heart rate: 120 Variability: Moderate (11-25) monitor accelerations: Present Monitor Decelerations: Absent Contraction Frequency (minutes): 3 Uterine Contraction Intensity: Strong/Firm Status: Category l Dilation (cm): 10 Effacement (%): 100 station: 0 PFS Medical History (Updated 03/20/23 @ 08:09 by Cony Quezada MD) Abnormal Pap smear of cervix (~2009) Dermatitis Foot pain (~2007) Ovarian cyst (~2019) Scoliosis (~2005) Shoulder pain (~2013) Thyroid nodule (~2013) Surgical History [place] teeth removed Family History (Updated 08/27/22 @ 13:07 by Amisha Laboy RN) Father Hypothyroidism Mother Osteopenia Vitamin B 12 deficiency Sister Asthma Bicuspid aortic valve Hypothyroidism Thyroid nodule Grandfather Diabetes mellitus Myocardial infarction Grandmother Stroke Grandfather Stroke Grandmother COPD (chronic obstructive pulmonary disease) Family/Other Breast cancer Social History marital status: number of children: 1 household members: spouse and children lives independently: Yes [facility] pets and animals: No education level: college occupational status: employed current occupational exposures/hazards: No special david needs: No travel history: over 6 months ago seatbelt use: always water heater temp set < 120 deg: Yes working smoke detector in home: Yes fire extinguisher in home: Yes carbon monox detector in home: Yes firearms in home: No do you feel safe at home: Yes Smoking Status: Never smoker alcohol intake: former substance use type: does not use during the past year weight has: remained stable well-balanced diet: daily or most days daily servings fruits/ve-4 caffeine: No Type(s) of exercise: aerobic and running frequency: 3-4 times per week Meds Home Medications and Allergies Home Medications Medication Instructions Recorded Confirmed Type prenat.vits,zamzam,flb-kigh-ongzy 1 tab PO DAILY 08/27/22 04/09/23 History Allergies Allergy/AdvReac Type Severity Reaction Status Date / Time No Known Drug Allergies Allergy Verified 04/09/23 01:05 OB Exam Narrative Exam Narrative: Gen: NAD, sitting comfortably in bed, appears well CV: RRR, no murmurs Resp: clear to auscultation bilaterally Abd: soft, nontender, gravid Ext: no edema Objective Labs 04/09/23 00:35 Labs: Laboratory Results - last 24 hr 04/09/23 04/09/23 00:35 00:35 WBC 12.2 H RBC 4.31 Hgb 13.7 Hct 39.5 MCV 91.5 MCH 31.7 MCHC 34.6 RDW 13.1 Plt Count 219 Neut % (Auto) 77.9 H Lymph % (Auto) 16.2 L [place] % (Auto) 5.0 Eos % (Auto) 0.6 L Baso % (Auto) 0.3 Neut # (Auto) 9500 H Lymph # (Auto) 2000 [place] # (Auto) 600 Eos # (Auto) 100 Baso # (Auto) 0 Blood Type A Positive Antibody Screen Negative Assessment and Plan Assessment and Plan Assessment and Plan narrative: 33yo at 39w4d here in active labor with SROM at home. GBS negative, Rh positive. - Expectant management, anticipate - GBS negative, no prophylaxis indicated - FHT reassuring - Epidural in place for pain control
--- NOTE | 2023-04-09 03:03 | PM.OBPRVD ---
Labor & Delivery Delivery date: 04/09/23 Cervical ripening method: none Induction method: none Delivery monitor: external FHT and external uterine Route of delivery: Episiotomy description: None L&D Laceration Description: Perineal - 2nd Degree Quantitative Blood Loss: 250 Anesthesia Type: Epidural Complications: None Narrative: PROCEDURE: at 39w4d presented in active labor with SROM at home and was admitted to Labor and Delivery. ROM had occured at 22:30 with clear fluid. The patient progressed through the 1st stage over 3 hours. Pain was controlled with an epidural. The patient progressed through the 2nd stage over 1 hour and delivered a viable male infant with APGARs 8/9 at 2:30 via without complications. The cord was cut and clamped after it stopped pulsating. The placenta delivered with gentle cord traction, and appeared complete. The perineum and vagina were inspected with 2nd degree perineal laceration repaired with 2-O Vicryl. Needle and sponge counts were correct.? The vagina was inspected and no items were left in situ. Jenn was doing well with Jamarcus, her and her , Alberto, at bedside. PREPROCEDURE DIAGNOSIS: Intrauterine at 39w4d GBS negative RH positive POSTPROCEDURE DIAGNOSIS: Intrauterine at 39w4d, delivered Same as preprocedure Randall Baby 1: gender: Male Presentation: vertex Position: Left Occiput Anterior Placenta delivery description: Spontaneous Cord Vessel Description: 3 Vessels score (1 min): 8 score (5 min): 9 weight: 7 lb 10.718 oz Plan for aftercare: Routine care
--- NOTE | 2023-04-09 07:09 | PC.NURSE ---
30 units of pitocin with 500m ml bag NS administered via IV at 0242.
[2023-04-09] MEDS: DOCUSATE 100 MG CAPSULE PO (08:50)
[2023-04-09] MEDS: PRENATAL VIT,CALC/IRON/FOLIC 1 TABLET 1 TAB PO (08:50)
[2023-04-09] MEDS: LANOLIN OINT 7 GM 1 APPLIC TOP (20:59)
[2023-04-10] MEDS: DOCUSATE 100 MG CAPSULE PO (09:34)
[2023-04-10] MEDS: PRENATAL VIT,CALC/IRON/FOLIC 1 TABLET 1 TAB PO (09:34)
--- NOTE | 2023-04-10 11:00 | P.DS_ITS ---
Discharge Providers Provider Date of admission: 04/08/23 23:48 Discharge Date: 04/10/23 Primary care physician: Cony Quezada MD Consults: 04/09/23 00:42 Consult to Anesthesiology Urgent Comment: Consulting Provider: Alan Pulliam Reason for consultation: Epidural 04/10/23 03:02 Consult to Byproducts Operator Routine Comment: Discharge provider: Cony Quezada MD Summary Hospital Course Date Patient Seen: 04/10/23 Diagnoses: 39w4d gestation Rh negative GBS positive Hospital Course: The pt presented in active labor with SROM at home. She had an epidural for pain control. She progressed to complete and had an of a viable baby boy without complications. A 2nd degree perineal laceration was then repaired. , there were no complications. At the time of discharge she was voiding, ambulating, and passing flatus without difficulty. Her lochia was decreasing appropriately. Her pain was well controlled. She will f/u in 6 weeks for check. Peripartum Data Infant Delivery Method: Natural Vaginal Laceration Description: Perineal - 2nd Degree Episiotomy description: None Procedures: Spontaneous vaginal delivery complications: none 1: Gender: Male Disposition of : home Discharge Diagnosis (1) Spontaneous vaginal delivery: Status: Acute Time Spent with Patient Time attestation: Total time spent providing and/or coordinating discharge services: Objective Labs 04/09/23 00:35 Exam Narrative Exam Narrative: Gen: NAD, sitting comfortably in bed, appears well CV: RRR, no murmurs Resp: clear to auscultation bilaterally Abd: soft, appropriately tender, fundus firm and below the umbilicus, nond istended Ext: no edema Discharge Plan Discharge Plan Patient Disposition: Home Discharge orders & Medications Prescriptions: New docusate sodium 100 mg Capsule 100 mg PO DAILY Qty: 30 0RF ibuprofen 600 mg Tablet 600 mg PO Q6HR PRN (Reason: Pain, Mild (1-3)) Qty: 30 0RF Continued prenat.vits,zamzam,byy-ttnm-iamtr Tablet 1 tab PO DAILY Follow up/Referrals: Cony Quezada MD [Primary Care Provider] - 05/21/23 2:30 pm Jannet Moraes MS [Registered Nurse] - 04/12/23 11:00 am Diet/Activity/Treatments Diet: Diet as Tolerated and Regular Skin/Wound/Dressing Care Report to your healthcare provider any signs of infection, such as:: chills, fever, increased pain and unusual drainage Visit Report/Discharge Packet Instructions: DI for Labor and Delivery, Vaginal Stand Alone Forms: Discharge: Care, Patient Portal/API, Stroke Signs & Symptoms Discharge Data Primary Care Provider: Cony Quezada Discharges patient from system. Discharge Date/Time: 04/10/23 11:45
== END 2023-04-10 11:45 | disposition home or self-care (01) | DRG 807 ==
PROVIDERS: Admitting Provider Family Medicine; PCP Family Medicine; Referring Provider Family Medicine; Visit Provider Family Medicine
DX: O70.1 Second degree perineal laceration during delivery (principal); Z37.0 Single live birth; Z3A.39 39 weeks gestation of pregnancy
CPT/HCPCS: 59050; 59400; 84112; 85025; 86850; 86900; 86901; G0379

== ENCOUNTER → 2023-08-05 09:11 | Outpatient (CLI) | payer OTHER, SELFPAY ==
--- NOTE | 2023-08-05 09:12 | DI.ECHO.S_ITS ---
[facility] +---------+ : : [address] : : : : [id number] : : : : Phone: [phone]+ Echocardiogram Report + + :Name: PEREZ ARMANDO Study Date: 08/05/2023 Height: 64 in : :[facility] ReadingLocation: Weight: 135 lb : : Gender: Female BSA: 1.7 m2 : :: 1990 Age: 33 yrs BP: 103/69 mmHg: :Reason For Study: Family History of Bicuspid Aortic Valve : :Ordering Physician: TING, : :VERNELL Performed By: Shahnaz Joel : :Referring: VERNELL MAGUIRE : + + Interpretation Summary The left ventricle is normal in size. The left ventricular ejection fraction is normal. The ejection fraction is estimated to be 65-70%. Diastolic parameters suggest probable normal left ventricular diastolic function and normal filling pressures. The right ventricle is normal in size and function. The aortic valve is trileaflet. The aortic valve opens well. There is no aortic valve stenosis. No aortic regurgitation is present. No significant valvular pathology seen. Procedure: A two-dimensional transthoracic echocardiogram with color flow and Doppler was performed. The study quality was technically adequate. There is no prior echocardiogram noted for this patient. The patient was in normal sinus rhythm during the exam. Left Ventricle: The left ventricle is normal in size. There is no thrombus. A false chord is noted (normal variant). The ejection fraction is estimated to be 65-70%. The left ventricular ejection fraction is normal. There are no focal wall motion abnormalities. Diastolic parameters suggest probable normal left ventricular diastolic function and normal filling pressures. Right Ventricle: The right ventricle is normal in size and function. Atria: The left atrial size is normal. Right atrial size is normal. There is no Doppler evidence for an interatrial shunt. Mitral Valve: The mitral valve leaflets appear mildly thickened, but open well. There is no mitral valve stenosis. There is trace mitral regurgitation. Aortic Valve: The aortic valve is trileaflet. The aortic valve opens well. There is no aortic valve stenosis. No aortic regurgitation is present. Tricuspid Valve: The tricuspid valve is normal. There is no tricuspid stenosis. There is trace tricuspid regurgitation. The right ventricular systolic pressure is estimated to be at least 19 mmHg based on an estimated right atrial pressure of 8 mm Hg. Pulmonic Valve: The pulmonic valve leaflets are thin and pliable; valve motion is normal. There is no pulmonic valvular stenosis. There is trace pulmonic regurgitation. Great Vessels: The aortic root is normal size. The ascending aorta is normal in size. The pulmonary artery is normal size. The IVC is dilated (diameter is greater than 2.1 cm) yet it collapses greater than 50% with a sniff. This suggests a right atrial pressure of 8 mm Hg. Pericardium/ Pleura There is no pericardial effusion. MMode/2D Measurements & Calculations LVIDd: 4.3 cm LVOT diam: 1.6 cm LVIDs: 2.9 cm Ao root diam: 2.2 cm FS: 32.6 % asc Aorta Diam: 2.6 cm IVSd: 0.60 cm LVPWd: 0.60 cm LV magallon. diameter/BSA (cm/m^2): 2.6 LV sys. diameter/BSA (cm/m^2): 1.8 LA A2 area: 14.5 cm2 RA long axis: 3.9 cm LA A4 area: 16.6 cm2 RA area: 9.9 cm2 LA length (vol): 5.2 cm RA vol: 21.3 ml LA vol: 39.7 ml RA : 12.9 ml/m2 LA vol index: 24.0 ml/m2 IVC diam: 2.4 cm RVD1 (basal): 3.0 cm LVLs ap4: 5.4 cm LVLd ap2: 7.7 cm TAPSE_phl: 2.5 cm LVLs ap2: 5.7 cm Doppler Measurements & Calculations Ao V2 max: 159.0 cm/sec LVOT Max Moris: 126.7 cm/sec Ao V2 mean: 110.0 cm/sec LV V1 max P.4 mmHg Ao max P.0 mmHg LV V1 VTI: 24.9 cm Ao mean P.0 mmHg KOKO(I,D): 1.4 cm2 Ao V2 VTI: 35.6 cm KOKO(V,D): 1.6 cm2 sev ratio: 0.70 KOKO indexed to BSA (cm^2/m^2): 0.85 MV E max moris: 104.0 cm/sec TR max moris: 165.0 cm/sec MV A max moris: 72.5 cm/sec TR max P.9 mmHg MV E/A: 1.4 PA V2 max: 105.0 cm/sec Med Peak E' Moris: 12.7 cm/sec PA V2 mean: 73.3 cm/sec E/E' med: 8.2 PA mean P.0 mmHg Lat Peak E' Moris: 17.0 cm/sec PA pr(Accel): -2.0 mmHg E/E' lat: 6.1 E/e' average: 7.2 MV dec time: 0.19 sec SV(LVOT): 50.1 ml AV VR_phl: 0.80 KOKO(VTI)/BSA_phl: 0.85 Reading Physician:10:29 AM
== END ==
PROVIDERS: PCP Family Medicine; Referring Provider Family Medicine; Visit Provider Family Medicine
DX: Z13.6 Encounter for screening for cardiovascular disorders (principal); Z82.79 Family history of other congenital malformations, deformations and chromosomal abnormalities
CPT/HCPCS: C8929; Q9957

== ENCOUNTER → 2023-09-28 09:06 | Outpatient (CLI) | payer OTHER, SELFPAY | PROVIDERS: PCP Family Medicine; Visit Provider Nurse Practitioner Family | DX: J02.9 Acute pharyngitis, unspecified (principal) | CPT/HCPCS: 87070 ==

== ENCOUNTER → 2024-03-27 13:36 | Outpatient (CLI) | payer OTHER, SELFPAY ==
--- NOTE | 2024-03-27 13:37 | DI.US.S_ITS ---
LIMITED ULTRASOUND OF RIGHT BREAST: 03/27/2024 CLINICAL: Palpable right breast lump. Comparison is made to exam dated: 03/27/2024 mammogram - [facility]. Color flow and real-time ultrasound of the right breast 4-6 o'clock region were performed. Navarro scale images of the real-time examination were reviewed. There is a 2.6 cm x 1.4 cm x 4.6 cm oval mass with a circumscribed margin in the right breast at 5 o'clock middle depth 7 cm from the nipple. This oval mass is isoechoic. This correlates as palpated. IMPRESSION: SUSPICIOUS OF MALIGNANCY The 2.6 cm x 1.4 cm x 4.6 cm oval mass in the right breast resembles a lactational adenoma but is a low suspicion for malignancy. US biopsy recommended. This exam was interpreted at Station ID: [id number]. Electronically Signed By: Domo Padgett M.D. lc/:03/27/2024 14:44:00 Entry: - 03/30/2024 14:56:15 letter sent: Biopsy Required Ultrasound BI-RADS: 4 Suspicious for malignancy
--- NOTE | 2024-03-27 13:37 | DI.MG.S_ITS ---
BILATERAL DIGITAL DIAGNOSTIC MAMMOGRAM 3D/2D: 03/27/2024 CLINICAL: Right breast lump. Baseline exam. No prior exams were available for comparison. Both breasts are extremely dense, which lowers the sensitivity of mammography (category d />75% glandular tissue). No significant masses, calcifications, or other findings are seen in either breast. IMPRESSION: INCOMPLETE: NEEDS ADDITIONAL IMAGING EVALUATION There is no abnormality seen in the right breast to correspond with the palpable abnormality, however, ultrasound is recommended. Based on the Tyrer Cuzick model (a risk assessment model) the patient's lifetime risk is 14.6% and her 10 year risk is 1.2%. According to the ACR, ACS, and NCCN guidelines, an annual breast MRI exam along with mammogram is recommended if the patient's lifetime risk is 20% or greater. This exam was interpreted at Station ID: [id number]. NOTE: For mammograms, a report in lay terms will be sent to the patient. Approximately 15% of breast malignancies will not be visualized mammographically. In the management of a palpable breast mass, a negative mammogram must not discourage biopsy of a clinically suspicious lesion. Electronically Signed By: Domo bloom/penrad:03/27/2024 14:42:12 ACR BI-RADS Category 0: Incomplete 3340F
== END ==
PROVIDERS: PCP Family Medicine; Referring Provider Family Medicine; Visit Provider Family Medicine
DX: R92.2 Inconclusive mammogram (principal); N63.14 Unspecified lump in the right breast, lower inner quadrant; R92.343 Mammographic extreme density, bilateral breasts
CPT/HCPCS: 76642; 77066; G0279

== ENCOUNTER → 2024-04-10 12:45 | Outpatient (CLI) | payer OTHER, SELFPAY ==
[2024-04-10 15:11] LABS: Free T3, Triiodothyronine Free 3.21 pg/mL (2.77-5.27); Free T4, Direct Thyroxine 0.72 ng/dL (0.78-2.19)
[2024-04-10 15:24] LABS: Thyroid Stimulating Hormone 1.53 uIU/mL (0.47-4.68)
[2024-04-11 21:03] LABS: Anti Thyroglobulin Antibody <1.0 IU/mL (0.0-0.9); Thyroid Peroxidase Antibodies 232 IU/mL (0-34)
== END ==
PROVIDERS: PCP Family Medicine; Referring Provider Family Medicine; Visit Provider Family Medicine
DX: Z86.39 Personal history of other endocrine, nutritional and metabolic disease (principal)
CPT/HCPCS: 36415; 84439; 84443; 84481; 86376; 86800

== ENCOUNTER → 2024-04-21 14:19 | Outpatient (CLI) | payer OTHER, SELFPAY ==
--- NOTE | 2024-04-21 | PATH_ITS ---
[facility] Accession Number: [id number] No. of containers..01 Tissue . 01 Material submitted: . breast - RIGHT BREAST 5:00 7CMFN MASS . 01 Clinical history: . RIGHT BREAST 5:00 7CMFN MASS . 01 Diagnosis: RIGHT BREAST MASS AT 5 O'CLOCK 7 CM FROM NIPPLE: Benign breast tissue with lactational change, consistent with lactating adenoma, in the appropriate clinical setting. Negative for atypia or malignancy. [facility] 04/23/2024 1743 Local . 01 Comment: As part of routine quality assurance coordinator, this case was also reviewed by Dr. De La Cruz, who agrees with the interpretation. . 01 Electronically signed: . Eliza Bhagat MD, Pathologist NPI- [id number] . 01 Gross description: . Received in formalin with two patient identifiers and US BX breast, are multiple yellow-galvan soft tissue fragments admixed with hemorrhagic material aggregating to 2.8 x 2.5 x 0.2 cm. Filtered and submitted entirely in A1. . The specimen was removed on 04/21/2024 at 1510. Time in formalin not provided. Cold ischemic time cannot be calculated. Total fixation time is approximately 26 hours. ([id number]) /MRV 04/22/2024 1407 Local . 01 Microscopic: . Immunostains for p63 and smooth muscle myosin are performed on block A1, to evaluate the cells of interest, and are positive in regions of interest. The control stain showed appropriate reactivity. . Immunohistochemical findings support the interpretation of benign breast tissue. . * This test was developed and its performance characteristics determined by [facility]. It has not been cleared or approved by the U.S. Food and Drug Administration. The FDA has determined that such clearance or approval is not necessary. This test is used for clinical purposes. It should not be regarded as investigational or for research. . 01 Pathologist provided ICD-10: R92.8, D24.1 . 01 CPT . 509413, E12873, Y32167 Performed at: [address] [id number] MD Reinaldo Lo MD Phone: [phone]
--- NOTE | 2024-04-21 14:20 | DI.US.S_ITS ---
ULTRASOUND GUIDED BIOPSY RIGHT BREAST USING VACUUM DEVICE WITH MARKING DEVICE INSERTED: 04/21/2024 PATIENT CONSENT: Risks (minor bleeding, infection, vasovagal reaction and repeat procedure), benefits and alternatives were explained to the patient and written informed consent was obtained. No prior exams were available for correlation. An ultrasound guided biopsy using real-time ultrasound was performed for the 2.6 cm x 1.4 cm x 4.6 cm circumscribed mass located in the right breast at 5 o'clock middle depth 7 cm from the nipple. The skin was prepped in the usual manner. The abnormality was approached from the lateral aspect. A biopsy needle was placed adjacent to the abnormality under ultrasound guidance. Once the needle was documented to be in the correct location, a specimen was obtained using a vacuum assisted device. A clip was inserted into the biopsy cavity. The specimen was sent to the laboratory for pathological analysis. IMPRESSION: ULTRASOUND GUIDED BIOPSY BENIGN Ultrasound guided biopsy of the 2.6 cm x 1.4 cm x 4.6 cm mass in the right breast at 5 o'clock middle depth 7 cm from the nipple was successful. Pathology indicates benign lactating adenoma (LA). Pathology results are concordant with imaging findings. Recommend clinical follow up. This exam was interpreted at Station ID: [id number]. Federico gutiérrez,aty/:04/24/2024 17:16:24
== END ==
PROVIDERS: PCP Family Medicine; Referring Provider Family Medicine; Visit Provider Family Medicine
DX: R92.8 Other abnormal and inconclusive findings on diagnostic imaging of breast (principal); N63.14 Unspecified lump in the right breast, lower inner quadrant
CPT/HCPCS: 19083

== ENCOUNTER → 2024-11-16 14:40 | Outpatient (CLI) | payer OTHER, SELFPAY ==
--- NOTE | 2024-11-16 14:42 | DI.RAD.S_ITS ---
PROCEDURE: XR CHEST 2V INDICATIONS: cough for 3 weeks, exposure to pneumonia TECHNIQUE: 2 views of the chest were acquired. COMPARISON: None. FINDINGS: Surgical changes and devices: None. Lungs and pleura: Lungs are clear. No pleural effusions or pneumothorax. Mediastinum: Mediastinal contours are normal. Heart size is normal. Bones and chest wall: No suspicious bony abnormalities. Soft tissues appear unremarkable. IMPRESSION: No acute cardiopulmonary abnormality is seen. Dictated by: Federico Patel M.D. on 11/16/2024 at 18:21 Approved by: Federico Patel M.D. on 11/16/2024 at 18:21
== END ==
PROVIDERS: PCP Family Medicine; Referring Provider Family Medicine; Visit Provider Family Medicine
DX: R05.9 Cough, unspecified (principal); Z20.89 Contact with and (suspected) exposure to other communicable diseases
CPT/HCPCS: 71046

== ENCOUNTER 2025-03-23 09:45 | Outpatient (RCR) | payer OTHER, SELFPAY ==
--- NOTE | 2025-01-28 16:40 | PT.OIE ---
Current Diagnoses Other specified disorders of muscle (01/28/25) Segmental and somatic dysfunction of pelvic region (01/28/25) Pelvic muscle wasting (01/28/25) Past Medical History (Last Updated 04/13/24 @ 08:28 by Cony Quezada MD) Abnormal Pap smear of cervix (~2009) Dermatitis Foot pain (~2007) Samreen's thyroiditis Ovarian cyst (~2019) Scoliosis (~2005) Shoulder pain (~2013) Spontaneous vaginal delivery Thyroid nodule (~2013) Past Surgical History (Last Reviewed 07/27/22 @ 07:33 by Stephan Vergara MD) [place] teeth removed Visit Care Team Role Provider Type Cony Quezada MD Attending Provider Physician Family Provider Primary Care Provider Referring Provider Specialty: Family Practice Address: [address] [place] [address], [facility] Email: [email or web address] Physical Therapy Initial Evaluation PT-OP-A Visit Information Start: 01/27/25 12:45 Freq: Status: Active Protocol: Document 01/28/25 11:30 [facility] (Rec: 01/28/25 17:16 [facility] [id number]) Out-Patient Physical Therapy Visit Information Visit Information Visit Type Initial Evaluation Visit Start Time 11:30 Visit Stop Time 12:15 Visit Number 1 Evaluation Information Evaluation Date 01/28/25 PT-OP-B Current Condition Start: 01/27/25 12:45 Freq: Status: Active Protocol: Document 01/28/25 11:25 [facility] (Rec: 01/28/25 11:58 [facility] [id number]) Current Condition History of Current Condition Onset Date symptoms began after her second childbirth March 2023 Current Complaints urinary stress incontinence History of Current Condition after her second baby she has noted it is more difficult to do things like running. She wears a thicker pad if she is going to be doing anything that could make her leak. She drinks a lot of water and she feels like she has to go to the bathroom but she is able to hold it. first baby was born april 2020. Second son was born march 2023. Both with vaginal delivery. With her first baby she had a episiotomy. She then got varicose veins with her second baby and she felt more pelvic pressure. she did have a small tear with her second delivery With bowel movements Jenn notes she feels she isn't able to fully empty her bowels in one setting. She leans forward and weight shift to try and fully empty but she is careful to avoid straining. Prior Treatments and Tests samreen's thyroiditis pt has a history of pelvic pain prior to her pregnancies and did do pelvic floor therapy and this helped. She denies any complaints of pain now with intercourse PT-OP-C Subjective Start: 01/27/25 12:45 Freq: Status: Active Protocol: Document 01/28/25 11:30 [facility] (Rec: 02/02/25 16:18 [facility] [id number]) Patient Questionnaires Pelvic Pain and Urgency/Frequency Patient Symptom Scale Pelvic Pain Score 5 PT-OP-I Pelvic Floor Start: 01/27/25 12:45 Freq: Status: Active Protocol: Document 01/28/25 11:30 [facility] (Rec: 01/28/25 17:20 [facility] [id number]) Pelvic Floor Assessment Urine Pelvic Floor Surgery No Other Urinary Symptoms pt reports urinary stress incontinence that started after the of her second baby in 2022, leakage reported with running jumping or coughing Leakage Cause Sneeze Other Leakage Causes jumping, running, sneeze, cough Urine Pad Type Panty Liner Pelvic Clock Pelvic Clock 12-3 Atrophy Prolapse Cystocele Grade 1 Perineal Descent Resting Present Contraction Ability Voluntary Contraction Weak Voluntary Relaxation Weak Manual Muscle Testing Left 2 Manual Muscle Testing Right 2 Manual Muscle Testing Anterior 1 Manual Muscle Testing Posterior 2 Muscle Endurance (Seconds) 3 Comments Pelvic Floor Comments weakness of both strength and endurance PT-OP-Q Treatments Start: 01/27/25 12:45 Freq: Status: Active Protocol: Document 01/28/25 11:30 [facility] (Rec: 01/28/25 17:20 [facility] [id number]) Therapeutic Exercises Supine Exercises ball squeeze with pelvic floor activation Reps/Minutes 10 reps holding 5 seconds 2 times per day PT-OP-T Assessment and Plan Start: 01/27/25 12:45 Freq: Status: Active Protocol: Document 01/28/25 11:25 [facility] (Rec: 02/02/25 16:22 [facility] [id number]) Physical Therapy Assessment Rehab Potential Rehabilitation Potential Excellent Evaluation Complexity Number of Personal Factors/Comorbidities 0 Number of Body Systems Impaired 1-2 Clinical Presentation at Evaluation Stable Impairments Impairments Activity Tolerance,Functional Activities,Soft Tissue Mobility,Strength Other Impairments urinary stress incontinence with jumping, laughing, coughing Assessment Summary Assessment Jenn is a 34 year old female referred to PT with chief complaints of urinary stress incontinence symptoms that began after her second childbirth in March 2023. Jenn reports she also noted pelvic pressure with her second more than her first. At this point she is experiencing leakage with exercise and she is wearing a thick pad when running due to leaking. She does have a history of episiotomy with her first baby and pelvic vericosities with her second. With pelvic floor exam there is weakness throughout the pelvic floor with 1/5 MMT for the right anterior pelvic floor, no palpable contraction noted left anterior pelvic wall, 1/5 MMT for the lateral sanders, and 2/5 MMT for the posterior wall. Endurance of the pelvic floor is limited to 1-2 seconds only. There is a grade 1 cystocele present. Jenn was educated today on pelvic floor facilitation and endurance training. She was given a home program to begin working on pelvic floor strengthening and she tolerated this well. She is a good candidate for pelvic floor PT Physical Therapy Plan Frequency and Duration Frequency of Treatment 1x/Week Duration of treatment (weeks) 10 Plan of Care Start Date 01/28/25 Plan of Care End Date 04/08/25 Therapeutic Interventions Therapeutic Interventions Home Exercise Program, Neuromuscular Re-education, Patient/Caregiver Education, Self-Care/Home Management, Therapeutic Exercises Modalities Biofeedback Next Visit Focus/Plan Next Note Type Treatment Note Next Visit Plan EMG biofeedback with pelvic floor exercises for strength and endurance training
--- NOTE | 2025-01-28 16:44 | PT.OPPOC ---
Physical, Occupational & Speech Therapy At [facility] Current Diagnoses Other specified disorders of muscle (01/28/25) Segmental and somatic dysfunction of pelvic region (01/28/25) Pelvic muscle wasting (01/28/25) Visit Care Team Role Provider Type Cony Quezada MD Attending Provider Physician Family Provider Primary Care Provider Referring Provider Specialty: Family Practice Address: [address] [place] [address], [place], [place], [facility] Email: [email or web address] Plan Of Care PT-OP-B Current Condition Start: 01/27/25 12:45 Freq: Status: Active Protocol: Document 01/28/25 11:25 [facility] (Rec: 01/28/25 11:58 [facility] [id number]) Current Condition History of Current Condition Onset Date symptoms began after her second childbirth March 2023 Current Complaints urinary stress incontinence History of Current Condition after her second baby she has noted it is more difficult to do things like running. She wears a thicker pad if she is going to be doing anything that could make her leak. She drinks a lot of water and she feels like she has to go to the bathroom but she is able to hold it. first baby was born april 2020. Second son was born march 2023. Both with vaginal delivery. With her first baby she had a episiotomy. She then got varicose veins with her second baby and she felt more pelvic pressure. she did have a small tear with her second delivery With bowel movements Jenn notes she feels she isn't able to fully empty her bowels in one setting. She leans forward and weight shift to try and fully empty but she is careful to avoid straining. Prior Treatments and Tests hashimotos thyroiditis pt has a history of pelvic pain prior to her pregnancies and did do pelvic floor therapy and this helped. She denies any complaints of pain now with intercourse PT-OP-T Assessment and Plan Start: 01/27/25 12:45 Freq: Status: Active Protocol: Document 01/28/25 11:25 [facility] (Rec: 02/02/25 16:22 [facility] [id number]) Physical Therapy Assessment Rehab Potential Rehabilitation Potential Excellent Evaluation Complexity Number of Personal Factors/Comorbidities 0 Number of Body Systems Impaired 1-2 Clinical Presentation at Evaluation Stable Impairments Impairments Activity Tolerance,Functional Activities,Soft Tissue Mobility,Strength Other Impairments urinary stress incontinence with jumping, laughing, coughing Assessment Summary Assessment Jenn is a 34 year old female referred to PT with chief complaints of urinary stress incontinence symptoms that began after her second childbirth in March 2023. Jenn reports she also noted pelvic pressure with her second more than her first. At this point she is experiencing leakage with exercise and she is wearing a thick pad when running due to leaking. She does have a history of episiotomy with her first baby and pelvic varicosity with her second. With pelvic floor exam there is weakness throughout the pelvic floor with 1/5 MMT for the right anterior pelvic floor, no palpable contraction noted left anterior pelvic wall, 1/5 MMT for the lateral sanders, and 2/5 MMT for the posterior wall. Endurance of the pelvic floor is limited to 1-2 seconds only. There is a grade 1 cystocele present. Jenn was educated today on pelvic floor facilitation and endurance training. She was given a home program to begin working on pelvic floor strengthening and she tolerated this well. She is a good candidate for pelvic floor PT Physical Therapy Plan Frequency and Duration Frequency of Treatment 1x/Week Duration of treatment (weeks) 10 Plan of Care Start Date 01/28/25 Plan of Care End Date 04/08/25 Therapeutic Interventions Therapeutic Interventions Home Exercise Program, Neuromuscular Re-education, Patient/Caregiver Education, Self-Care/Home Management, Therapeutic Exercises Modalities Biofeedback Next Visit Focus/Plan Next Note Type Treatment Note Next Visit Plan EMG biofeedback with pelvic floor exercises for strength and endurance training Plan of Care Dates Plan of Care Start Date 01/28/25 Plan of Care End Date 04/08/25 Electronically Signed by: Francisca Petersen, PT 02/02/25 2627 If you are in agreement with this Plan of Care, please return a signed and dated copy. I have reviewed this Plan of Care and certify that the skilled therapy services above are required to meet the patient?s needs. Physician Signature Date Printed Name and Credentials Clinical Instructor Signature Printed Name and Credentials
--- NOTE | 2025-02-04 11:04 | PT.OTN ---
Current Diagnoses Other specified disorders of muscle (02/04/25) Segmental and somatic dysfunction of pelvic region (02/04/25) Pelvic muscle wasting (02/04/25) Physical Therapy Treatment Note PT-OP-A Visit Information Start: 01/27/25 12:45 Freq: Status: Active Protocol: Document 02/04/25 09:50 [facility] (Rec: 02/04/25 10:08 [facility] [id number]) Out-Patient Physical Therapy Visit Information Visit Information Visit Type Treatment Note Visit Start Time 09:50 Visit Stop Time 10:35 Visit Number 2 Evaluation Information Evaluation Date 01/28/25 PT-OP-B Current Condition Start: 01/27/25 12:45 Freq: Status: Active Protocol: Document 01/28/25 11:25 [facility] (Rec: 01/28/25 11:58 [facility] [id number]) Current Condition History of Current Condition Onset Date symptoms began after her second childbirth March 2023 Current Complaints urinary stress incontinence History of Current Condition after her second baby she has noted it is more difficut to do things like running. She wears a thicker pad if she is going to be doing anything that could make her leak. She drinks a lot of water and she feels like she has to go to the bathroom but she is able to hold it. first baby was born april 2020. Second son was born march 2023. Both with vaginal delivery. With her first baby she had a episiotomy. She then got varicose veins with her second baby and she felt more pelvic pressure. she did have a small tear with her second delivery With bowel movements Jenn notes she feels she isn't able to fully empty her bowels in one setting. She leans forward and weight shift to try and fully empty but she is careful to avoid straining. Prior Treatments and Tests hashimotos thyroiditis pt has a history of pelvic pain prior to her pregnancies and did do pelvic floor therapy and this helped. She denies any compaints of pain now with intercourse PT-OP-C Subjective Start: 01/27/25 12:45 Freq: Status: Active Protocol: Document 02/04/25 09:50 [facility] (Rec: 02/04/25 10:51 [facility] [id number]) OP-PT Subjective Patient Comments Patient Comments Jenn reports she has been working on her exercises with ball squeeze at home PT-OP-I Pelvic Floor Start: 01/27/25 12:45 Freq: Status: Active Protocol: Document 01/28/25 11:30 [facility] (Rec: 01/28/25 17:20 [facility] [id number]) Pelvic Floor Assessment Urine Pelvic Floor Surgery No Other Urinary Symptoms pt reports urinary stress incontinence that started after the of her second baby in 2022, leakage reported with running jumping or coughing Leakage Cause Sneeze Other Leakage Causes jumping, running, sneeze, cough Urine Pad Type Panty Liner Pelvic Clock Pelvic Clock 12-3 Atrophy Prolapse Cystocele Grade 1 Perineal Descent Resting Present Contraction Ability Voluntary Contraction Weak Voluntary Relaxation Weak Manual Muscle Testing Left 2 Manual Muscle Testing Right 2 Manual Muscle Testing Anterior 1 Manual Muscle Testing Posterior 2 Muscle Endurance (Seconds) 3 Comments Pelvic Floor Comments weakness of both strength and endurance PT-OP-Q Treatments Start: 01/27/25 12:45 Freq: Status: Active Protocol: Document 02/04/25 09:50 [facility] (Rec: 02/04/25 10:08 [facility] [id number]) Therapeutic Exercises Supine Exercises diaphragmatic breathing Reps/Minutes inhale x 4 counts and exhale x 4 counts Comments cues to avoid gripping with upper abdominal muscle pelvic floor isolations Supine Exercise Name 17.2 and 28.8 uv Reps/Minutes x 10 reps ball squeeze with pelvic floor activation Reps/Minutes 10 reps holding 10 seconds Comments avere 23.8 and max 43.4 Sidelying Exercises clam shells Reps/Minutes work up to 3 sets of 10 reps PT-OP-T Assessment and Plan Start: 01/27/25 12:45 Freq: Status: Active Protocol: Document 02/04/25 09:50 [facility] (Rec: 02/04/25 10:20 [facility] [id number]) Physical Therapy Assessment Goals 3 Impairment urinary stress incontinence symptoms worse with exercise and running Mcfp Goal (LTG) Jenn reports a overall reduction of urinary stress incontinence and is no longer needing to wear a pad with running and exercise LTG Duration 8 weeks+ 2 Impairment Decreased pelvic floor endurance Short Term Goal (STG) Jenn is able to sustain a pelvic floor contraction in supine x 10 seconds STG Duration 5 weeks Child Care Provider Goal (LTG) Jenn is able to sustain a pelvic floor contraction in standing x 5 seconds or better LTG Duration 8 weeks 1 Impairment pelvic floor weakness Mcfp Goal (LTG) Jenn is able to improve pelvic floor muscle strength by at least one muscle grade for all sanders of the levator ani LTG Duration 8 weeks+ Assessment Summary Assessment discussed trying to fully relax the abdominal wall as Jenn notes she tends to keep it tight throught the day, discussed trying to relax the abdominal wall when she voids to be able to fully void. Pt was elevated at 3 uv initially with biofeedback but by the end of the session she was relaxing fully. Added in pelvic floor isolations and clam shells. She notes tightness in bilateral hips with left side being tighter than the right side Physical Therapy Plan Frequency and Duration Frequency of Treatment 1x/Week Duration of treatment (weeks) 10 Plan of Care Start Date 01/28/25 Plan of Care End Date 04/08/25 Therapeutic Interventions Therapeutic Interventions Home Exercise Program, Neuromuscular Re-education, Patient/Caregiver Education, Self-Care/Home Management, Therapeutic Exercises Modalities Biofeedback Next Visit Focus/Plan Next Note Type Treatment Note Next Visit Plan work on piriformis stretch and modified squat stretch first prior to pelvic floor exercises and consider NMES next visit if Jenn is still having difficulty feeling the anterior pelvic floor
--- NOTE | 2025-02-11 16:00 | PT.OTN ---
Current Diagnoses Other specified disorders of muscle (02/11/25) Segmental and somatic dysfunction of pelvic region (02/11/25) Pelvic muscle wasting (02/11/25) Physical Therapy Treatment Note PT-OP-A Visit Information Start: 01/27/25 12:45 Freq: Status: Active Protocol: Document 02/11/25 14:34 [facility] (Rec: 02/11/25 15:17 [facility] [id number]) Out-Patient Physical Therapy Visit Information Visit Information Visit Type Treatment Note Visit Start Time 14:30 Visit Stop Time 15:15 Visit Number 3 PT-OP-B Current Condition Start: 01/27/25 12:45 Freq: Status: Active Protocol: Document 01/28/25 11:25 [facility] (Rec: 01/28/25 11:58 [facility] [id number]) Current Condition History of Current Condition Onset Date symptoms began after her second childbirth March 2023 Current Complaints urinary stress incontinence History of Current Condition after her second baby she has noted it is more difficut to do things like running. She wears a thicker pad if she is going to be doing anything that could make her leak. She drinks a lot of water and she feels like she has to go to the bathroom but she is able to hold it. first baby was born april 2020. Second son was born march 2023. Both with vaginal delivery. With her first baby she had a episiotomy. She then got varicose veins with her second baby and she felt more pelvic pressure. she did have a small tear with her second delivery With bowel movements Jenn notes she feels she isn't able to fully empty her bowels in one setting. She leans forward and weight shift to try and fully empty but she is careful to avoid straining. Prior Treatments and Tests hashimotos thyroiditis pt has a history of pelvic pain prior to her pregnancies and did do pelvic floor therapy and this helped. She denies any compaints of pain now with intercourse PT-OP-C Subjective Start: 01/27/25 12:45 Freq: Status: Active Protocol: Document 02/11/25 14:34 [facility] (Rec: 02/11/25 15:17 [facility] [id number]) OP-PT Subjective Patient Comments Patient Comments pt reports she has been working on her exercises at home and trying to fully empty her bladder. Instead of pushing out the last bit of urine. She reports she was able to do one of her 10 min cardio workouts without leakage, the second one she did note leakage but she feels things are improving Patient Reported Progress Improving PT-OP-I Pelvic Floor Start: 01/27/25 12:45 Freq: Status: Active Protocol: Document 01/28/25 11:30 [facility] (Rec: 01/28/25 17:20 [facility] [id number]) Pelvic Floor Assessment Urine Pelvic Floor Surgery No Other Urinary Symptoms pt reports urinary stress incontinence that started after the of her second baby in 2022, leakage reported with running jumping or coughing Leakage Cause Sneeze Other Leakage Causes jumping, running, sneeze, cough Urine Pad Type Panty Liner Pelvic Clock Pelvic Clock 12-3 Atrophy Prolapse Cystocele Grade 1 Perineal Descent Resting Present Contraction Ability Voluntary Contraction Weak Voluntary Relaxation Weak Manual Muscle Testing Left 2 Manual Muscle Testing Right 2 Manual Muscle Testing Anterior 1 Manual Muscle Testing Posterior 2 Muscle Endurance (Seconds) 3 Comments Pelvic Floor Comments weakness of both strength and endurance PT-OP-Q Treatments Start: 01/27/25 12:45 Freq: Status: Active Protocol: Document 02/11/25 14:34 [facility] (Rec: 02/11/25 15:17 [facility] [id number]) Therapeutic Exercises Supine Exercises templates for eccentric control and coordiantion Reps/Minutes x 5 pelvic floor isolations Supine Exercise Name 15.1 and 21.8 uv Reps/Minutes x 10 reps ball squeeze with pelvic floor activation Reps/Minutes 10 reps holding 10 seconds Comments 22.0 and 33.6 uv max Neuro Re-Education Treatment Other Activities NMES Details NMES with pelvic floor engagement Comments NMES at level 12 , she can feel it primarily in the posterior section. She can feel it towards the back and the side We increased to level 14 and she could start feeling more of the front aspect of the pelvic floor PT-OP-T Assessment and Plan Start: 01/27/25 12:45 Freq: Status: Active Protocol: Document 02/11/25 14:30 [facility] (Rec: 02/13/25 08:22 [facility] [id number]) Physical Therapy Assessment Assessment Summary Assessment I started Jenn with NMES for the pelvic floor today as she still has some decreased awareness of the anterior pelvic floor. Will reassess how she felt this helped her next visit. I did add in eccentric control and coordination for her. She is working on fully relaxing her pelvic floor and not pushing with voiding Physical Therapy Plan Frequency and Duration Frequency of Treatment 1x/Week Duration of treatment (weeks) 10 Plan of Care Start Date 01/28/25 Plan of Care End Date 04/08/25 Therapeutic Interventions Therapeutic Interventions Home Exercise Program, Neuromuscular Re-education, Patient/Caregiver Education, Self-Care/Home Management, Therapeutic Exercises Modalities Biofeedback Next Visit Focus/Plan Next Note Type Treatment Note Next Visit Plan assess how Jenn did with NMES, review eccentric control and begin to work in upright positions
--- NOTE | 2025-02-25 17:10 | PT.OTN ---
Current Diagnoses Other specified disorders of muscle (02/25/25) Segmental and somatic dysfunction of pelvic region (02/25/25) Pelvic muscle wasting (02/25/25) Physical Therapy Treatment Note PT-OP-A Visit Information Start: 01/27/25 12:45 Freq: Status: Active Protocol: Document 02/25/25 11:33 [facility] (Rec: 02/25/25 13:01 [facility] [id number]) Out-Patient Physical Therapy Visit Information Visit Information Visit Type Treatment Note Visit Start Time 11:35 Visit Stop Time 12:20 Visit Number 4 PT-OP-B Current Condition Start: 01/27/25 12:45 Freq: Status: Active Protocol: Document 01/28/25 11:25 [facility] (Rec: 01/28/25 11:58 [facility] [id number]) Current Condition History of Current Condition Onset Date symptoms began after her second childbirth March 2023 Current Complaints urinary stress incontinence History of Current Condition after her second baby she has noted it is more difficut to do things like running. She wears a thicker pad if she is going to be doing anything that could make her leak. She drinks a lot of water and she feels like she has to go to the bathroom but she is able to hold it. first baby was born april 2020. Second son was born march 2023. Both with vaginal delivery. With her first baby she had a episiotomy. She then got varicose veins with her second baby and she felt more pelvic pressure. she did have a small tear with her second delivery With bowel movements Jenn notes she feels she isn't able to fully empty her bowels in one setting. She leans forward and weight shift to try and fully empty but she is careful to avoid straining. Prior Treatments and Tests hashimotos thyroiditis pt has a history of pelvic pain prior to her pregnancies and did do pelvic floor therapy and this helped. She denies any compaints of pain now with intercourse PT-OP-C Subjective Start: 01/27/25 12:45 Freq: Status: Active Protocol: Document 02/25/25 11:33 [facility] (Rec: 02/25/25 13:01 [facility] [id number]) OP-PT Subjective Patient Comments Patient Comments was on a trip so didn't get in her exercises as much as she could She is feeling the sensation of her pelvic floor more. PT-OP-I Pelvic Floor Start: 01/27/25 12:45 Freq: Status: Active Protocol: Document 01/28/25 11:30 [facility] (Rec: 01/28/25 17:20 [facility] [id number]) Pelvic Floor Assessment Urine Pelvic Floor Surgery No Other Urinary Symptoms pt reports urinary stress incontinence that started after the of her second baby in 2022, leakage reported with running jumping or coughing Leakage Cause Sneeze Other Leakage Causes jumping, running, sneeze, cough Urine Pad Type Panty Liner Pelvic Clock Pelvic Clock 12-3 Atrophy Prolapse Cystocele Grade 1 Perineal Descent Resting Present Contraction Ability Voluntary Contraction Weak Voluntary Relaxation Weak Manual Muscle Testing Left 2 Manual Muscle Testing Right 2 Manual Muscle Testing Anterior 1 Manual Muscle Testing Posterior 2 Muscle Endurance (Seconds) 3 Comments Pelvic Floor Comments weakness of both strength and endurance PT-OP-Q Treatments Start: 01/27/25 12:45 Freq: Status: Active Protocol: Document 02/25/25 11:33 [facility] (Rec: 02/25/25 13:01 [facility] [id number]) Therapeutic Exercises Supine Exercises supine marches with TA Reps/Minutes 10 reps pelvic floor isolations Supine Exercise Name 16.1 24.1 Reps/Minutes x 10 reps 10 sec holds and 10 sec rest Standing Exercises standing 5 second holds Standing Exercise Name pt standing and leaning over the treatment table Reps/Minutes 5 reps standing pelvic floor quick contractions Reps/Minutes hold 2 sec and relax 2 sec x 10 reps standing single leg squats Standing Exercise Name cues to align the knee and not let it cross midline Side bilateral Reps/Minutes x 10 times each Comments used a mirror for guidance standing single leg balance Reps/Minutes hold 30 seconds each side standing squats Reps/Minutes x 10 reps Self-Care/Home Management Treatment Education Patient Education Body Mechanics,Home Exercise Program,Joint Protection Other Education pt was educated on the use of super feet for arch support PT-OP-T Assessment and Plan Start: 01/27/25 12:45 Freq: Status: Active Protocol: Document 02/25/25 11:33 [facility] (Rec: 02/25/25 13:01 [facility] [id number]) Physical Therapy Assessment Goals 3 Impairment urinary stress incontinence symptoms worse with exercise and running 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 (LTG) Jenn reports a overall reduction of urinary stress incontinence and is no longer needing to wear a pad with running and exercise LTG Duration 8 weeks+ 2 Impairment Decreased pelvic floor endurance Short Term Goal (STG) Jenn is able to sustain a pelvic floor contraction in supine x 10 seconds STG Duration 5 weeks Shelter Goal (LTG) Jenn is able to sustain a pelvic floor contraction in standing x 5 seconds or better LTG Duration 8 weeks 1 Impairment pelvic floor weakness 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 Goal (LTG) Jenn is able to improve pelvic floor muscle strength by at least one muscle grade for all sanders of the levator ani LTG Duration 8 weeks+ Assessment Summary Assessment Time was spent today in standing for pelvic floor activation. Jenn was able to do quick flicks in standing . I did have her try longer holds by leaning over the table to allow her to fully relax her abdominal wall. It was noted that she pronates a great amount as she was standing. I educated her on the use of super feet and we added in squats and single leg squats with pelvic floor activation. She requires a hand hold for single leg squats. She is more aware of her pelvic floor contractions now Physical Therapy Plan Frequency and Duration Frequency of Treatment 1x/Week Duration of treatment (weeks) 10 Plan of Care Start Date 01/28/25 Plan of Care End Date 04/08/25 Therapeutic Interventions Therapeutic Interventions Home Exercise Program, Neuromuscular Re-education, Patient/Caregiver Education, Self-Care/Home Management, Therapeutic Exercises Modalities Biofeedback Next Visit Focus/Plan Next Note Type Treatment Note Next Visit Plan continue working in upright positions, review squats and single leg squats, clam shells and templates for eccentric control and stabilization
--- NOTE | 2025-03-04 16:53 | PT.OTN ---
Current Diagnoses Other specified disorders of muscle (03/04/25) Segmental and somatic dysfunction of pelvic region (03/04/25) Pelvic muscle wasting (03/04/25) Physical Therapy Treatment Note PT-OP-A Visit Information Start: 01/27/25 12:45 Freq: Status: Active Protocol: Document 03/04/25 11:33 [facility] (Rec: 03/04/25 12:17 [facility] [id number]) Out-Patient Physical Therapy Visit Information Visit Information Visit Type Treatment Note Visit Start Time 11:33 Visit Stop Time 12:15 PT-OP-B Current Condition Start: 01/27/25 12:45 Freq: Status: Active Protocol: Document 01/28/25 11:25 [facility] (Rec: 01/28/25 11:58 [facility] [id number]) Current Condition History of Current Condition Onset Date symptoms began after her second childbirth March 2023 Current Complaints urinary stress incontinence History of Current Condition after her second baby she has noted it is more difficut to do things like running. She wears a thicker pad if she is going to be doing anything that could make her leak. She drinks a lot of water and she feels like she has to go to the bathroom but she is able to hold it. first baby was born april 2020. Second son was born march 2023. Both with vaginal delivery. With her first baby she had a episiotomy. She then got varicose veins with her second baby and she felt more pelvic pressure. she did have a small tear with her second delivery With bowel movements Jenn notes she feels she isn't able to fully empty her bowels in one setting. She leans forward and weight shift to try and fully empty but she is careful to avoid straining. Prior Treatments and Tests hashimotos thyroiditis pt has a history of pelvic pain prior to her pregnancies and did do pelvic floor therapy and this helped. She denies any compaints of pain now with intercourse PT-OP-C Subjective Start: 01/27/25 12:45 Freq: Status: Active Protocol: Document 03/04/25 11:33 [facility] (Rec: 03/04/25 12:17 [facility] [id number]) OP-PT Subjective Patient Comments Patient Comments pt notes she ordered the super feet she did do a high intensity cardio and had leakage and also did also running down hill PT-OP-I Pelvic Floor Start: 01/27/25 12:45 Freq: Status: Active Protocol: Document 01/28/25 11:30 [facility] (Rec: 01/28/25 17:20 [facility] [id number]) Pelvic Floor Assessment Urine Pelvic Floor Surgery No Other Urinary Symptoms pt reports urinary stress incontinence that started after the of her second baby in 2022, leakage reported with running jumping or coughing Leakage Cause Sneeze Other Leakage Causes jumping, running, sneeze, cough Urine Pad Type Panty Liner Pelvic Clock Pelvic Clock 12-3 Atrophy Prolapse Cystocele Grade 1 Perineal Descent Resting Present Contraction Ability Voluntary Contraction Weak Voluntary Relaxation Weak Manual Muscle Testing Left 2 Manual Muscle Testing Right 2 Manual Muscle Testing Anterior 1 Manual Muscle Testing Posterior 2 Muscle Endurance (Seconds) 3 Comments Pelvic Floor Comments weakness of both strength and endurance PT-OP-Q Treatments Start: 01/27/25 12:45 Freq: Status: Active Protocol: Document 03/04/25 11:33 [facility] (Rec: 03/04/25 12:17 [facility] [id number]) Therapeutic Exercises Supine Exercises pelvic floor and TA brace with crunches Reps/Minutes x 10 reps modified squat stretch Side bilateral Reps/Minutes hold 1-2 min supine marches with TA Reps/Minutes 10 x reps Comments progressed to LA level 2 diaphragmatic breathing Reps/Minutes inhale x 4 counts and exhale x 4 counts Comments cues to avoid gripping with upper abdominal muscle Sidelying Exercises clam shells Reps/Minutes work up to 3 sets of 10 reps Comments added in level resistance band Standing Exercises quadruped TA Standing Exercise Name worked on releasing the upper abdominal wall and focused on TA Reps/Minutes x 10 reps PT-OP-T Assessment and Plan Start: 01/27/25 12:45 Freq: Status: Active Protocol: Document 03/04/25 16:50 [facility] (Rec: 03/04/25 16:52 [facility] [id number]) Physical Therapy Assessment Assessment Summary Assessment Jenn was on her period today so no biofeedback was used. We worked on TA stabilization and working to relax the upper abdominal wall at rest. She tends to hold tension in the lower abdominal wall. I added resistance to clam shells and we worked on piriformis stretch for her hips as well Physical Therapy Plan Next Visit Focus/Plan Next Note Type Treatment Note Next Visit Plan continue with EMG biofeedback for pelvic floor strength and endurance training next visit
--- NOTE | 2025-03-09 17:02 | PT.OTN ---
Current Diagnoses Other specified disorders of muscle (03/09/25) Segmental and somatic dysfunction of pelvic region (03/09/25) Pelvic muscle wasting (03/09/25) Physical Therapy Treatment Note PT-OP-A Visit Information Start: 01/27/25 12:45 Freq: Status: Active Protocol: Document 03/09/25 11:33 [facility] (Rec: 03/09/25 12:19 [facility] [id number]) Out-Patient Physical Therapy Visit Information Visit Information Visit Type Treatment Note Visit Start Time 11:34 Visit Stop Time 12:15 Visit Number 6 Evaluation Information Evaluation Date 01/28/25 PT-OP-B Current Condition Start: 01/27/25 12:45 Freq: Status: Active Protocol: Document 01/28/25 11:25 [facility] (Rec: 01/28/25 11:58 [facility] [id number]) Current Condition History of Current Condition Onset Date symptoms began after her second childbirth March 2023 Current Complaints urinary stress incontinence History of Current Condition after her second baby she has noted it is more difficut to do things like running. She wears a thicker pad if she is going to be doing anything that could make her leak. She drinks a lot of water and she feels like she has to go to the bathroom but she is able to hold it. first baby was born april 2020. Second son was born march 2023. Both with vaginal delivery. With her first baby she had a episiotomy. She then got varicose veins with her second baby and she felt more pelvic pressure. she did have a small tear with her second delivery With bowel movements Jenn notes she feels she isn't able to fully empty her bowels in one setting. She leans forward and weight shift to try and fully empty but she is careful to avoid straining. Prior Treatments and Tests hashimotos thyroiditis pt has a history of pelvic pain prior to her pregnancies and did do pelvic floor therapy and this helped. She denies any compaints of pain now with intercourse PT-OP-C Subjective Start: 01/27/25 12:45 Freq: Status: Active Protocol: Document 03/09/25 11:33 [facility] (Rec: 03/09/25 12:19 [facility] [id number]) OP-PT Subjective Patient Comments Patient Comments pt notes she did do cardio this week and she thinks things felt a little better. She has the super feet but has not tried them yet and plans on trying the poise impressas next time she runs PT-OP-I Pelvic Floor Start: 01/27/25 12:45 Freq: Status: Active Protocol: Document 01/28/25 11:30 [facility] (Rec: 01/28/25 17:20 [facility] [id number]) Pelvic Floor Assessment Urine Pelvic Floor Surgery No Other Urinary Symptoms pt reports urinary stress incontinence that started after the of her second baby in 2022, leakage reported with running jumping or coughing Leakage Cause Sneeze Other Leakage Causes jumping, running, sneeze, cough Urine Pad Type Panty Liner Pelvic Clock Pelvic Clock 12-3 Atrophy Prolapse Cystocele Grade 1 Perineal Descent Resting Present Contraction Ability Voluntary Contraction Weak Voluntary Relaxation Weak Manual Muscle Testing Left 2 Manual Muscle Testing Right 2 Manual Muscle Testing Anterior 1 Manual Muscle Testing Posterior 2 Muscle Endurance (Seconds) 3 Comments Pelvic Floor Comments weakness of both strength and endurance PT-OP-Q Treatments Start: 01/27/25 12:45 Freq: Status: Active Protocol: Document 03/09/25 11:33 [facility] (Rec: 03/09/25 12:19 [facility] [id number]) Therapeutic Exercises Supine Exercises pelvic floor quick flicks Reps/Minutes 10 reps holding 2 sec and relaxing 2 sec modified squat stretch Side bilateral Reps/Minutes hold 1-2 min templates for eccentric control and coordiantion Reps/Minutes x 5 pelvic floor isolations Supine Exercise Name as 16.1 and 21.4 max Equipment Used x 10 reps Comments 16.9 uv and 24.3 ball squeeze with pelvic floor activation Reps/Minutes 10 reps holding 10 seconds Comments 20 and 30 uv max PT-OP-T Assessment and Plan Start: 01/27/25 12:45 Freq: Status: Active Protocol: Document 03/09/25 11:33 [facility] (Rec: 03/09/25 17:00 [facility] [id number]) Physical Therapy Assessment Goals 3 Impairment urinary stress incontinence symptoms worse with exercise and running 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) Jenn reports a overall reduction of urinary stress incontinence and is no longer needing to wear a pad with running and exercise LTG Duration 8 weeks+ 2 Impairment Decreased pelvic floor endurance Short Term Goal (STG) Jenn is able to sustain a pelvic floor contraction in supine x 10 seconds STG Duration 5 weeks Custodial Goal (LTG) Jenn is able to sustain a pelvic floor contraction in standing x 5 seconds or better LTG Duration 8 weeks 1 Impairment pelvic floor weakness Custodial Goal (LTG) Jenn is able to improve pelvic floor muscle strength by at least one muscle grade for all sanders of the levator ani LTG Duration 8 weeks+ Assessment Summary Assessment Jenn is doing better with fully relaxing her pelvic floor. She plans on trying out both the super feet as well as the poise impressas for bladder support Physical Therapy Plan Frequency and Duration Frequency of Treatment 1x/Week Duration of treatment (weeks) 10 Plan of Care Start Date 01/28/25 Plan of Care End Date 04/08/25 Therapeutic Interventions Therapeutic Interventions Home Exercise Program, Neuromuscular Re-education, Patient/Caregiver Education, Self-Care/Home Management, Therapeutic Exercises Modalities Biofeedback Next Visit Focus/Plan Next Note Type Treatment Note Next Visit Plan continue working in upright positions and transitional movements with pelvic floor isolations
--- NOTE | 2025-03-23 10:35 | PT.OTN ---
Current Diagnoses Other specified disorders of muscle (03/23/25) Segmental and somatic dysfunction of pelvic region (03/23/25) Pelvic muscle wasting (03/23/25) Physical Therapy Treatment Note PT-OP-A Visit Information Start: 01/27/25 12:45 Freq: Status: Active Protocol: Document 03/23/25 09:48 [facility] (Rec: 03/23/25 10:35 [facility] [id number]) Out-Patient Physical Therapy Visit Information Visit Information Visit Type Treatment Note Visit Start Time 09:49 Visit Stop Time 10:30 Visit Number 7 PT-OP-B Current Condition Start: 01/27/25 12:45 Freq: Status: Active Protocol: Document 01/28/25 11:25 [facility] (Rec: 01/28/25 11:58 [facility] [id number]) Current Condition History of Current Condition Onset Date symptoms began after her second childbirth March 2023 Current Complaints urinary stress incontinence History of Current Condition after her second baby she has noted it is more difficut to do things like running. She wears a thicker pad if she is going to be doing anything that could make her leak. She drinks a lot of water and she feels like she has to go to the bathroom but she is able to hold it. first baby was born april 2020. Second son was born march 2023. Both with vaginal delivery. With her first baby she had a episiotomy. She then got varicose veins with her second baby and she felt more pelvic pressure. she did have a small tear with her second delivery With bowel movements Jenn notes she feels she isn't able to fully empty her bowels in one setting. She leans forward and weight shift to try and fully empty but she is careful to avoid straining. Prior Treatments and Tests hashimotos thyroiditis pt has a history of pelvic pain prior to her pregnancies and did do pelvic floor therapy and this helped. She denies any compaints of pain now with intercourse PT-OP-C Subjective Start: 01/27/25 12:45 Freq: Status: Active Protocol: Document 03/23/25 09:48 [facility] (Rec: 03/23/25 10:35 [facility] [id number]) OP-PT Subjective Patient Comments Patient Comments pt notes she feels she is holding her pelvic floor better, she still feels like she is leaking with exercises PT-OP-I Pelvic Floor Start: 01/27/25 12:45 Freq: Status: Active Protocol: Document 01/28/25 11:30 [facility] (Rec: 01/28/25 17:20 [facility] [id number]) Pelvic Floor Assessment Urine Pelvic Floor Surgery No Other Urinary Symptoms pt reports urinary stress incontinence that started after the of her second baby in 2022, leakage reported with running jumping or coughing Leakage Cause Sneeze Other Leakage Causes jumping, running, sneeze, cough Urine Pad Type Panty Liner Pelvic Clock Pelvic Clock 12-3 Atrophy Prolapse Cystocele Grade 1 Perineal Descent Resting Present Contraction Ability Voluntary Contraction Weak Voluntary Relaxation Weak Manual Muscle Testing Left 2 Manual Muscle Testing Right 2 Manual Muscle Testing Anterior 1 Manual Muscle Testing Posterior 2 Muscle Endurance (Seconds) 3 Comments Pelvic Floor Comments weakness of both strength and endurance PT-OP-Q Treatments Start: 01/27/25 12:45 Freq: Status: Active Protocol: Document 03/23/25 09:48 [facility] (Rec: 03/23/25 10:35 [facility] [id number]) Therapeutic Exercises Supine Exercises templates for eccentric control and coordiantion Reps/Minutes x 5 min pelvic floor isolations Equipment Used x 10 reps Comments 17.6 and max of 26 uv ball squeeze with pelvic floor activation Reps/Minutes 10 reps holding 10 seconds Comments 19 and 29.6 uv max PT-OP-T Assessment and Plan Start: 01/27/25 12:45 Freq: Status: Active Protocol: Document 03/23/25 09:48 [facility] (Rec: 03/23/25 10:35 [facility] [id number]) Physical Therapy Assessment Goals 3 Impairment urinary stress incontinence symptoms worse with exercise and running Longterm Goal (LTG) Jenn reports a overall reduction of urinary stress incontinence and is no longer needing to wear a pad with running and exercise LTG Duration 8 weeks+ 2 Impairment Decreased pelvic floor endurance Short Term Goal (STG) Jenn is able to sustain a pelvic floor contraction in supine x 10 seconds STG Duration 5 weeks Emd Teacher Goal (LTG) Jenn is able to sustain a pelvic floor contraction in standing x 5 seconds or better LTG Duration 8 weeks 1 Impairment pelvic floor weakness Emd Teacher Goal (LTG) Jenn is able to improve pelvic floor muscle strength by at least one muscle grade for all sanders of the levator ani LTG Duration 8 weeks+ Assessment Summary Assessment Jenn is not using the upper abdominal wall as much for pelvic floor contractions, she has been working more this week on strength. She has not yet tried the poise impressas but plans to this week with running. We talked about walking the downhill as she is running with a stroller. She is presenting with improved strength of hip ER Physical Therapy Plan Frequency and Duration Frequency of Treatment 1x/Week Duration of treatment (weeks) 10 Plan of Care Start Date 01/28/25 Plan of Care End Date 04/08/25 Therapeutic Interventions Therapeutic Interventions Home Exercise Program, Neuromuscular Re-education, Patient/Caregiver Education, Self-Care/Home Management, Therapeutic Exercises Modalities Biofeedback Next Visit Focus/Plan Next Note Type Treatment Note Next Visit Plan review of all exercises as this next visit will be The last visit for Jenn
--- NOTE | 2025-04-15 17:05 | PT.OPDS ---
Current Diagnoses Other specified disorders of muscle (03/23/25) Segmental and somatic dysfunction of pelvic region (03/23/25) Pelvic muscle wasting (03/23/25) Visit Care Team Role Provider Type Cony Quezada MD Attending Provider Physician Family Provider Primary Care Provider Referring Provider Specialty: Family Practice Address: [address] [place] [address], [id number] Email: [email or web address] Visit Number Visit Number 7 Discharge Summary PT-OP-B Current Condition Start: 01/27/25 12:45 Freq: Status: Active Protocol: Document 01/28/25 11:25 [facility] (Rec: 01/28/25 11:58 [id number]) Current Condition History of Current Condition Onset Date symptoms began after her second childbirth March 2023 Current Complaints urinary stress incontinence History of Current after her second baby she has noted it is more difficut Condition to do things like running. She wears a thicker pad if she is going to be doing anything that could make her leak. She drinks a lot of water and she feels like she has to go to the bathroom but she is able to hold it. first baby was born april 2020. Second son was born march 2023 . Both with vaginal delivery. With her first baby she had a episiotomy. She then got varicose veins with her second baby and she felt more pelvic pressure. she did have a small tear with her second delivery With bowel movements Jenn notes she feels she isn't able to fully empty her bowels in one setting. She leans forward and weight shift to try and fully empty but she is careful to avoid straining. Prior Treatments and hashimotos thyroiditis Tests pt has a history of pelvic pain prior to her pregnancies and did do pelvic floor therapy and this helped. She denies any compaints of pain now with intercourse PT-OP-C Subjective Start: 01/27/25 12:45 Freq: Status: Active Protocol: Document 03/23/25 09:48 [facility] (Rec: 03/23/25 10:35 [facility] [id number]) OP-PT Subjective Patient Comments Patient Comments pt notes she feels she is holding her pelvic floor better, she still feels like she is leaking with exercises PT-OP-I Pelvic Floor Start: 01/27/25 12:45 Freq: Status: Active Protocol: Document 01/28/25 11:30 [facility] (Rec: 01/28/25 17:20 [id number]) Pelvic Floor Assessment Urine Pelvic Floor Surgery No Other Urinary pt reports urinary stress incontinence that started Symptoms after the of her second baby in 2022, leakage reported with running jumping or coughing Leakage Cause Sneeze Other Leakage Causes jumping, running, sneeze, cough Urine Pad Type Panty Liner Pelvic Clock Pelvic Clock 12-3 Atrophy Prolapse Cystocele Grade 1 Perineal Descent Resting Present Contraction Ability Voluntary Weak Contraction Voluntary Relaxation Weak Manual Muscle 2 Testing Left Manual Muscle 2 Testing Right Manual Muscle 1 Testing Anterior Manual Muscle 2 Testing Posterior Muscle Endurance ( 3 Seconds) Comments Pelvic Floor weakness of both strength and endurance Comments PT-OP-T Assessment and Plan Start: 01/27/25 12:45 Freq: Status: Active Protocol: Document 04/15/25 17:02 [facility] (Rec: 04/15/25 17:05 [facility] [id number]) Physical Therapy Assessment Goals 3 Impairment urinary stress incontinence symptoms worse with exercise and running Librarian Assistant Goal (LTG) Jenn reports a overall reduction of urinary stress incontinence and is no longer needing to wear a pad with running and exercise per phone conversation on 04/15/25 symptoms have gotten a little better and Jenn will continue to work on her exercises at home LTG Duration 8 weeks+ 2 Impairment Decreased pelvic floor endurance Short Term Goal (STG Jenn is able to sustain a pelvic floor contraction in ) supine x 10 seconds goal met STG Duration 5 weeks Librarian Assistant Goal (LTG) Jenn is able to sustain a pelvic floor contraction in standing x 5 seconds or better Jenn will continue to work on strengthening in upright positions LTG Duration 8 weeks 1 Impairment pelvic floor weakness Librarian Assistant Goal (LTG) Jenn is able to improve pelvic floor muscle strength by at least one muscle grade for all sanders of the levator ani good progress LTG Duration 8 weeks+ Assessment Summary Assessment Per phone conversation with Jenn on the phone today she feels that symptoms are a little better. She would like to continue working on exercises on her own for now and should she feel like she needs further work up she was given Dr. Garvey name as a resource. At this point things are better but not yet fully resolved. She will be discharged to [facility] at this time Physical Therapy Plan Discharge Physical Therapy Discharge Reasons No Longer Attending PT
== END 2025-04-22 14:27 | disposition home or self-care (01) ==
LOC: PHYS 09:45
PROVIDERS: Family Provider Family Medicine; PCP Family Medicine; Referring Provider Family Medicine; Visit Provider Family Medicine
DX: M62.89 Other specified disorders of muscle (principal); M99.05 Segmental and somatic dysfunction of pelvic region; N81.84 Pelvic muscle wasting
CPT/HCPCS: 97110; 97112; 97161

== ENCOUNTER → 2025-05-08 08:03 | Outpatient (CLI) | payer OTHER, SELFPAY ==
[2025-05-08 10:03] LABS: Free T3, Triiodothyronine Free 3.36 pg/mL (2.77-5.27); Free T4, Direct Thyroxine 0.91 ng/dL (0.78-2.19)
[2025-05-08 10:16] LABS: Thyroid Stimulating Hormone 1.21 uIU/mL (0.47-4.68)
== END ==
PROVIDERS: Family Provider Family Medicine; PCP Family Medicine; Referring Provider Family Medicine; Visit Provider Family Medicine
DX: R79.89 Other specified abnormal findings of blood chemistry (principal); Z82.49 Family history of ischemic heart disease and other diseases of the circulatory system
CPT/HCPCS: 36415; 83695; 84439; 84443; 84481

== ENCOUNTER → 2025-05-11 08:51 | Outpatient (CLI) | payer OTHER, SELFPAY ==
[2025-05-12 15:36] LABS: Anti Thyroglobulin Antibody <1.0 IU/mL (0.0-0.9)
== END ==
PROVIDERS: Family Provider Family Medicine; PCP Family Medicine; Visit Provider Family Medicine
DX: E06.3 Autoimmune thyroiditis (principal)
CPT/HCPCS: 86376; 86800